=== PATIENT | female | born 1995 | race Caucasian/White ===

== ENCOUNTER 2018-09-29 20:24 | Emergency (ER) | payer SELFPAY ==
[~2018-09-29] VITALS: Ht 160 cm; Wt 145.1 kg
[2018-09-29] MEDS ORDERED: LORazepam INJ 2 MG/ML (ATIVAN) VIAL IVP ONE (20:45)
[2018-09-29 20:47] LABS: BASOPHILS # (AUTO) 0.1 10^3/uL (0.0-0.1); BASOPHILS % (AUTO) 1 % (0-10); EOSINOPHILS # (AUTO) 0.3 10^3/uL (0.0-0.3); EOSINOPHILS % (AUTO) 2 % (0-10); HEMATOCRIT 36 % (35-52); HEMOGLOBIN 11.5 G/DL (11.5-16.0); LYMPHOCYTES # (AUTO) 3.4 X 10^3 (1.0-4.0); LYMPHOCYTES % (AUTO) 25 % (12-44); MEAN CORPUSCULAR HEMOGLOBIN 23 PG (25-34); MEAN CORPUSCULAR HGB CONC 32 G/DL (32-36); MEAN CORPUSCULAR VOLUME 74 FL (80-99); MEAN PLATELET VOLUME 9.1 FL (7.4-10.4); MONOCYTES % (AUTO) 7 % (0-12); NEUTROPHILS # (AUTO) 8.9 X 10^3 (1.8-7.8); NEUTROPHILS % (AUTO) 66 % (42-75); PLATELET COUNT 600 10^3/uL (130-400); RED CELL DISTRIBUTION WIDTH 17.2 % (10.0-14.5); WHITE BLOOD COUNT 13.6 10^3/uL (4.3-11.0)
[2018-09-29 20:59] LABS: PROTHROMBIN TIME PATIENT 13.4 SEC (12.2-14.7)
[2018-09-29 21:06] LABS: ALANINE AMINOTRANSFERASE 29 U/L (0-55); ALBUMIN 4.1 GM/DL (3.2-4.5); ALKALINE PHOSPHATASE 72 U/L (40-136); BILIRUBIN,TOTAL 0.4 MG/DL (0.1-1.0); BUN/CREATININE RATIO 9; CALCIUM 9.7 MG/DL (8.5-10.1); CARBON DIOXIDE 23 MMOL/L (21-32); CHLORIDE 104 MMOL/L (98-107); CREATININE SERUM 0.95 MG/DL (0.60-1.30); GFR ESTIMATED > 60; GLUCOSE 112 MG/DL (70-105); MAGNESIUM 1.9 MG/DL (1.8-2.4); POTASSIUM 3.6 MMOL/L (3.6-5.0); SODIUM 139 MMOL/L (135-145); TOTAL PROTEIN 7.4 GM/DL (6.4-8.2)
--- NOTE | 2018-09-29 21:10 | ED Chest Pain ---
General Chief Complaint: Chest Pain Stated Complaint: CP Nursing Triage Note: PT AMB TO RM 3 WITH COMPLAINT OF CHEST PAIN. 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 STATES SHE THOUGHT SHE WAS HAVING AN ANXIETY ATTACK, BUT WAS NOT RELIEVED BY HER HYDROXYZINE OR A SHOWER. PT STATES SHE HAD OPEN HEART A CHILD TO REPAIR HOLES IN HEART. Nursing Sepsis Screen: No Definite Risk Source: patient, family Exam Limitations: no limitations (ANMOL WEINER MD) History of Present Illness Date Seen by Provider: September 29, 2018 Time Seen by Provider: 20:30 Initial Comments This 23-year-old young lady presents to the emergency room with primary complaints of shortness of breath and chest tightness that started about 20 minutes prior to arrival. She does struggle with anxiety and panic attacks for which she takes hydroxyzine. However, she states this feels somewhat different than the usual panic attacks. She does have numbness and tingling in her fingers. They tightness in her chest seems to be worse with deep breathing. She has nausea for which her mother gave her a "nausea pill". Patient recently moved here from [place] and has not established in the healthcare community. She reports having a cardiac history as a young child. 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 She denies smoking, alcohol use, or drug use. She also has had a faint pain in her left side recently. Patient is noted to be tachycardic on initial assessment. (ANMOL WEINER MD) Allergies and Home Medications Allergies Coded Allergies: amoxicillin (Verified Allergy, Unknown, 09/29/18) Patient Home Medication List Home Medication List Reviewed: Yes (ANMOL WEINER MD) Review of Systems Review of Systems Constitutional: no symptoms reported EENTM: No Symptoms Reported Respiratory: See HPI Cardiovascular: See HPI Gastrointestinal: No Symptoms Reported Genitourinary: No Symptoms Reported Musculoskeletal: no symptoms reported Skin: no symptoms reported Psychiatric/Neurological: See HPI Endocrine: No Symptoms Reported Hematologic/Lymphatic: No Symptoms Reported (ANMOL WEINER MD) Past Vussvee-Lcawue-Coboos Hx Past Med/Social Hx: Reviewed and Corrections made (ANMOL WEINER MD) Patient Social History Alcohol Use: Denies Use Recreational Drug Use: No Smoking Status: Never a Smoker Recent Foreign Travel: No Contact w/Someone Who Travel: No Recent Infectious Disease Expo: No Recent Hopitalizations: No (ANMOL WEINER MD) Immunizations Up To Date Tetanus Booster (TDap): Unknown PED Vaccines UTD: Yes (ANMOL WEINER MD) Seasonal Allergies Seasonal Allergies: No (ANMOL WEINER MD) Past Medical History Surgeries: Yes (OPEN HEART) Respiratory: No Cardiac: Yes (OPEN HEART CHILD TO REPAIR HOLES IN HEART ) Neurological: No Last Menstrual Period: Aug 09, 2018 Reproductive Disorders: No Gastrointestinal: Yes Gastroesophageal Reflux Musculoskeletal: No Endocrine: No HEENT: No Cancer: No Psychosocial: Yes Anxiety Integumentary: No (ANMOL WEINER MD) Physical Exam Vital Signs Vital Signs - First Documented 09/29/18 20:28 Pulse 112 Resp 15 B/P (MAP) 153/102 (119) Pulse Ox 98 O2 Delivery Room Air (MILAGRO MAYS MD) Vital Signs Capillary Refill : Less Than 3 Seconds (ANMOL WEINER MD) Height, Weight, BMI Height: 5'3.00" Weight: 320lbs. oz. 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 She was) Skin: Normal Color, Warm/Dry (ANMOL WEINER MD) Progress/Results/Core Measures Results/Orders Lab Results Laboratory Tests Test 09/29/18 20:35 Range/Units White Blood Count 13.6 H 4.3-11.0 10^3/uL Red Blood Count 4.92 4.35-5.85 10^6/uL Hemoglobin 11.5 11.5-16.0 G/DL Hematocrit 36 35-52 % Mean Corpuscular Volume 74 L 80-99 FL Mean Corpuscular Hemoglobin 23 L 25-34 PG Mean Corpuscular Hemoglobin Concent 32 32-36 G/DL Red Cell Distribution Width 17.2 H 10.0-14.5 % Platelet Count 600 H 130-400 10^3/uL Mean Platelet Volume 9.1 7.4-10.4 FL Neutrophils (%) (Auto) 66 42-75 % Lymphocytes (%) (Auto) 25 12-44 % Monocytes (%) (Auto) 7 0-12 % Eosinophils (%) (Auto) 2 0-10 % Basophils (%) (Auto) 1 0-10 % Neutrophils # (Auto) 8.9 H 1.8-7.8 X 10^3 Lymphocytes # (Auto) 3.4 1.0-4.0 X 10^3 Monocytes # (Auto) 1.0 0.0-1.0 X 10^3 Eosinophils # (Auto) 0.3 0.0-0.3 10^3/uL Basophils # (Auto) 0.1 0.0-0.1 10^3/uL Prothrombin Time 13.4 12.2-14.7 SEC INR Comment 1.0 0.8-1.4 Activated Partial Thromboplast Time 31 24-35 SEC D-Dimer 0.42 0.00-0.49 UG/ML Sodium Level 139 135-145 MMOL/L Potassium Level 3.6 3.6-5.0 MMOL/L Chloride Level 104 98-107 MMOL/L Carbon Dioxide Level 23 21-32 MMOL/L Anion Gap 12 5-14 MMOL/L Blood Urea Nitrogen 9 7-18 MG/DL Creatinine 0.95 0.60-1.30 MG/DL Estimat Glomerular Filtration Rate > 60 BUN/Creatinine Ratio 9 Glucose Level 112 H 70-105 MG/DL Calcium Level 9.7 8.5-10.1 MG/DL Corrected Calcium 9.6 8.5-10.1 MG/DL Magnesium Level 1.9 1.8-2.4 MG/DL Total Bilirubin 0.4 0.1-1.0 MG/DL Aspartate Amino Transf (AST/SGOT) 29 5-34 U/L Alanine Aminotransferase (ALT/SGPT) 29 0-55 U/L Alkaline Phosphatase 72 40-136 U/L Myoglobin 25.2 10.0-92.0 NG/ML Troponin I < 0.028 <0.028 NG/ML Total Protein 7.4 6.4-8.2 GM/DL Albumin 4.1 3.2-4.5 GM/DL Serum Test, Qualitative NEGATIVE NEGATIVE (MILAGRO MAYS MD) Medications Given in ED Current Medications Medications Dose Ordered Sig/Emmanuel Route Start Time Stop Time Status Last Admin Dose Admin Lorazepam 1 mg ONCE ONCE IVP 09/29/18 20:45 09/29/18 20:46 DC 09/29/18 20:56 1 MG (MILAGRO MAYS MD) Vital Signs/I&O 09/29/18 20:28 Pulse 112 Resp 15 B/P (MAP) 153/102 (119) Pulse Ox 98 O2 Delivery Room Air (MILAGRO MAYS MD) Blood Pressure Mean: 119 Progress Progress Note : Time: 21:14 Progress Note Patient was seen and examined. Chest pain workup is in progress. Ativan 1 mg was given for anxiety. (ANMOL WEINER MD) Progress Note : Progress Note 2149: I assumed care of the patient from Dr. Katz pending labs and chest x-ray. Those are now complete. Chest x-ray shows what pad but no other acute finding. D-dimer is negative. In reevaluating the patient she is having no respiratory distress. Pain is resolved. She believes that it may be related to anxiety. She does have cardiac history and does need follow-up with cardiology and we will give her follow-up information for Dr. Lopez. They'll call his office on Tuesday morning for appointment next week. Discharged home with return precautions. Patient verbalize understanding instructions and agreement with plan. (MILAGRO MAYS MD) Initial ECG Impression Date: September 29, 2018 Initial ECG Impression Time: 20:32 Initial ECG Rate: 115 Initial ECG Rhythm: S.Tach Initial ECG Intervals Right bundle branch block Comment Sinus tachycardia with no ST elevation or depression. Right bundle branch block. No axis deviation. (ANMOL WEINER MD) Diagnostic Imaging Diagonstic Imaging: Xray Plain Films/CT/US/NM/MRI: chest Comments Chest x-ray viewed by me. Report reviewed. Report below: NAME: VIVIAN CASTILLO [facility] REC#: [id number] PT STATUS: REG ER : 1995 PHYSICIAN: ANMOL WEINER MD ADMIT DATE: 09/29/18/ER Signed Date of Exam: 09/29/18 CHEST PA/LAT (2 VIEW) INDICATION: Chest pain. PA and lateral views were obtained FINDINGS: The heart size is normal. There is prominent pericardial fat on the right. There is no pleural effusion, pneumothorax or pneumonia. Mediastinum is unremarkable. IMPRESSION: No acute cardiopulmonary abnormality Dictated by: Dictated on workstation # [id number] Dict: 09/29/182130 Trans: 09/29/182133 Interpreted by: LATOYA TRIANA MD Electronically signed by: LATOYA TRIANA MD 09/29/182133 (ANMOL WEINER MD) Departure Impression Primary Impression: Chest pain Qualified Codes: R07.9 - Chest pain, unspecified Additional Impression: Anxiety Disposition: 01 HOME, SELF-CARE Condition: Improved Departure-Patient Inst. Decision time for Depature: 21:56 (MILAGRO MAYS MD) Referrals: MARSHALL LOPEZ MD UNKNOWN (PCP) Primary Care Physician Patient Instructions: Chest Pain (DC), Anxiety, Adult (DC) Add. Discharge Instructions: All discharge instructions reviewed with patient and/or family. Voiced understanding. Call Dr. Lopez's office on Tuesday morning for appointment this week for recheck and further evaluation. Return for worse pain, fever, vomiting, weakness, rhythm problems or other concerns as needed. Continue home medications as previously prescribed. You may take Tylenol/acetaminophen 1000 mg every 8 hours as needed for pain. You may take ibuprofen 600 mg every 8 hours as needed for pain as well. Drink plenty of fluids. Copy Copies To 1: MARSHALL LOPEZ MD, JOSHUA T MD September 29, 2018 21:10 MILAGRO MAYS MD September 29, 2018 21:58
--- NOTE | 2018-09-29 21:33 | Diagnostic Imaging Report ---
INDICATION: Chest pain. PA and lateral views were obtained FINDINGS: The heart size is normal. There is prominent pericardial fat on the right. There is no pleural effusion, pneumothorax or pneumonia. Mediastinum is unremarkable. IMPRESSION: No acute cardiopulmonary abnormality Dictated by: Dictated on workstation # [id number]
[2018-09-29 22:05] VITALS: BP 136/94
== END 2018-09-29 22:05 | disposition home or self-care (01) ==
LOC: ER 20:27
DX: R07.89 Other chest pain (principal); F41.9 Anxiety disorder, unspecified; K21.9 Gastro-esophageal reflux disease without esophagitis; Z86.79 Personal history of other diseases of the circulatory system; Z88.0 Allergy status to penicillin; Z98.890 Other specified postprocedural states
CPT/HCPCS: 36415; 71046; 80053; 83735; 83874; 84484; 84703; 85025; 85379; 85610; 85730; 93005; 93041

== ENCOUNTER 2018-10-10 22:37 | Emergency (ER) | payer MEDICAID, OTHER ==
[~2018-10-10] VITALS: Ht 160 cm; Wt 145.1 kg
[2018-10-10 23:59] LABS: BILIRUBIN,URINE NEGATIVE (NEGATIVE); CLARITY,URINE CLEAR; COLOR,URINE YELLOW; GLUCOSE, URINE (UA) NEGATIVE (NEGATIVE); KETONES,URINE NEGATIVE (NEGATIVE); LEUKOCYTE ESTERASE ,URINE NEGATIVE (NEGATIVE); NITRITE,URINE NEGATIVE (NEGATIVE); PH,URINE 6 (5-9); PROTEIN,URINE NEGATIVE (NEGATIVE); UROBILINOGEN,URINE NORMAL (NORMAL)
[2018-10-11] MEDS ORDERED: PANTOPRAZOLE 40 MG (PROTONIX) VIAL IV ONE
[2018-10-11 00:10] LABS: HCG,QUALITATIVE URINE NEGATIVE (NEGATIVE)
[2018-10-11 00:14] LABS: BACTERIA,URINE TRACE /HPF; SQUAMOUS EPITHELIAL CELL,UR 25-50 /HPF
[2018-10-11 00:21] LABS: AMPHETAMINE SCREEN, URINE NEGATIVE (NEGATIVE); BARBITURATE SCREEN URINE NEGATIVE (NEGATIVE); BENZODIAZEPINES SCREEN URINE NEGATIVE (NEGATIVE); CANNABINOID SCREEN, URINE NEGATIVE (NEGATIVE); COCAINE SCREEN URINE NEGATIVE (NEGATIVE); METHADONE STAT NEGATIVE (NEGATIVE); METHAMPHETAMINE SCREEN URINE S NEGATIVE (NEGATIVE); OPIATE SCREEN URINE NEGATIVE (NEGATIVE); OXYCODONE STAT NEGATIVE (NEGATIVE); PROPOXYPHENE STAT NEGATIVE (NEGATIVE); TRICYCLIC ANTIDEPRESSANTS SCRE NEGATIVE (NEGATIVE)
[2018-10-11 00:29] LABS: BASOPHILS # (AUTO) 0.1 10^3/uL (0.0-0.1); BASOPHILS % (AUTO) 0 % (0-10); EOSINOPHILS # (AUTO) 0.1 10^3/uL (0.0-0.3); EOSINOPHILS % (AUTO) 1 % (0-10); HEMATOCRIT 37 % (35-52); HEMOGLOBIN 11.8 G/DL (11.5-16.0); LYMPHOCYTES # (AUTO) 1.9 X 10^3 (1.0-4.0); LYMPHOCYTES % (AUTO) 14 % (12-44); MEAN CORPUSCULAR HEMOGLOBIN 24 PG (25-34); MEAN CORPUSCULAR HGB CONC 32 G/DL (32-36); MEAN CORPUSCULAR VOLUME 74 FL (80-99); MEAN PLATELET VOLUME 9.7 FL (7.4-10.4); MONOCYTES # (AUTO) 0.9 X 10^3 (0.0-1.0); MONOCYTES % (AUTO) 6 % (0-12); NEUTROPHILS # (AUTO) 10.9 X 10^3 (1.8-7.8); NEUTROPHILS % (AUTO) 79 % (42-75); PLATELET COUNT 522 10^3/uL (130-400); RED CELL DISTRIBUTION WIDTH 16.4 % (10.0-14.5); WHITE BLOOD COUNT 13.8 10^3/uL (4.3-11.0)
[2018-10-11 00:40] LABS: PROTHROMBIN TIME PATIENT 13.5 SEC (12.2-14.7)
[2018-10-11 00:48] LABS: ALANINE AMINOTRANSFERASE 26 U/L (0-55); ALBUMIN 4.2 GM/DL (3.2-4.5); ALKALINE PHOSPHATASE 69 U/L (40-136); AMYLASE 39 U/L (25-125); BILIRUBIN,TOTAL 0.3 MG/DL (0.1-1.0); BUN/CREATININE RATIO 11; CALCIUM 9.9 MG/DL (8.5-10.1); CARBON DIOXIDE 25 MMOL/L (21-32); CHLORIDE 103 MMOL/L (98-107); CREATININE SERUM 0.85 MG/DL (0.60-1.30); GFR ESTIMATED > 60; GLUCOSE 112 MG/DL (70-105); LIPASE 7 U/L (8-78); MAGNESIUM 1.9 MG/DL (1.8-2.4); POTASSIUM 4.2 MMOL/L (3.6-5.0); SODIUM 139 MMOL/L (135-145); TOTAL PROTEIN 7.3 GM/DL (6.4-8.2)
[2018-10-11] MEDS ORDERED: KETOROLAC 30 MG/ML VIAL IVP ONE (01:45)
[2018-10-11] MEDS ORDERED: ONDA4TAB11 PO (01:55)
--- NOTE | 2018-10-11 01:56 | ED General ---
General Chief Complaint: Psych/Social Disorder Stated Complaint: ANXIETY Nursing Triage Note: AMBULATORY TO ED WITH C/O ANXIETY, CHEST TIGHTNESS. Nursing Sepsis Screen: No Definite Risk Source of Information: Patient History of Present Illness Date Seen by Provider: Oct 10, 2018 Time Seen by Provider: 23:35 Initial Comments PT ARRIVES VIA POV WITH BOYFRIEND PT STATE SHE HAS HAD CHEST TIGHTNESS ALL DAY STATES IT FEELS LIKE SHE IS HAVING A PANIC ATTACK, AND SHE STATES "I GET THOSE ALL THE TIME" HAS BEEN PRESCRIBED HYDRALAZINE, AND TOOK 1 AT 2100 TONIGHT AND HAS NOT HELPED. PT HAS BEEN DX WITH GERD AND HAS BEEN PRESCRIBED OMEPRAZOLE. STATES SHE HAS HAD SOME NAUSEA AND VOMITING--HAS BEEN "SPITTING UP DARK MUCOUS"--THIS HAS BEEN ONGOING THING AND HAS BEEN DX WITH GERD , AND HAS HAD EGD. NO ABDOMINAL PAIN NO DIARRHEA PT HAS OCCASIONAL NON-PRODUCTIVE COUGH--MOSTLY WHEN SHE LAYS DOWN NO PAIN WITH BREATHING NO SHORTNESS OF BREATH AND NO WHEEZING NO FEVER PT JUST MOVED HERE A MONTH AGO FROM [place], [place] PT HAS NEW PT APPOINTMENT WITH [facility] 10/17/18 PT LATER STATES SHE WAS SEEN HERE LAST WEEK FOR THE SAME THING WAS HERE 09/29/18 WITH SAME COMPLAINTS WORK UP WAS ESSENTIALLY NEGATIVE, PT WAS TO FOLLOW UP WITH DR. 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 LMP 07/2018--HAS NOT DONE HOME TEST. STATES SHE WAS ON DEPO PROVERA, AND HER LAST SHOT WAS 02/2018 AND PERIODS HAVE NOT BEEN REGULAR SINCE SHE QUIT TAKING DEPO PROVERA. NO OTHER FORM OF CONTROL SINCE THEN. Allergies and Home Medications Allergies Coded Allergies: amoxicillin (Verified Allergy, Unknown, 09/29/18) Home Medications Ondansetron 4 Mg Tab.rapdis, 4 MG PO Q4H Prescribed by: LUANA ANDRADE on 10/11/18 [id number] Patient Home Medication List Home Medication List Reviewed: Yes Review of Systems Review of Systems Constitutional: no symptoms reported; No chills, No diaphoresis, No dizziness, No fever, No malaise, No weakness EENTM: no symptoms reported Respiratory: cough; No orthopnea, No phlegm, No short of breath, No wheezing Cardiovascular: see HPI, chest pain; No edema; Hx of Intervention; No palpitations, No syncope Gastrointestinal: see HPI; No abdominal pain, No diarrhea; nausea, vomiting Genitourinary: see HPI LMP: Jul 07, 2018 Musculoskeletal: no symptoms reported; No back pain Skin: no symptoms reported Psychiatric/Neurological: No Symptoms Reported Hematologic/Lymphatic: No Symptoms Reported Immunological/Allergic: no symptoms reported Past Xkdvjnu-Uptccw-Jteqbq Hx Patient Social History Alcohol Use: Denies Use Recreational Drug Use: No Smoking Status: Never a Smoker Recent Foreign Travel: No Contact w/Someone Who Travel: No Recent Infectious Disease Expo: No Recent Hopitalizations: No Immunizations Up To Date Tetanus Booster (TDap): Unknown PED Vaccines UTD: Yes Seasonal Allergies Seasonal Allergies: No Past Medical History 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4; EGD) Cardiac, Open Heart Surgery Respiratory: No Cardiac: Yes (OPEN HEART SURGERY AT AGE 4 TO REPAIR HOLES IN HEART ; RBBB) Congenital Heart Disease Neurological: Yes Headaches /Migraines Female Reproductive Disorders: Menstrual Problems Genitourinary: No Gastrointestinal: Yes Gastroesophageal Reflux Musculoskeletal: No Endocrine: Yes ( MORBID OBESITY) HEENT: No Cancer: No Psychosocial: Yes (PANIC ATTACKS) Anxiety Integumentary: No Blood Disorders: No Physical Exam Vital Signs Vital Signs - First Documented 10/10/18 10/11/18 23:28 02:10 Temp 98.2 Pulse 96 Resp 16 B/P (MAP) 139/93 (108) Pulse Ox 98 O2 Delivery Room Air Capillary Refill : Less Than 3 Seconds Height, Weight, BMI Height: 5'3.00" Weight: 320lbs. oz. 145.392892zo; BMI Method:Stated General Appearance: No Apparent Distress, Obese (MORBIDLY OBESE. ), Other (SMILING, VERY TALKATIVE, DOES NOT APPEAR TO BE IN ANY DISCOMFORT OR DISTRESS. ) HEENT: PERRL/EOMI Neck: Normal Inspection, Non Tender, Supple Respiratory: Normal Breath Sounds, No Accessory Muscle Use, No Respiratory Distress, Other (MARKED STERNAL AND PARASTERNAL CHEST WALL TENDERNESS--PALPATION DRAMATICALLY REPRODUCES PAIN. 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 Norm as Tested Skin: Normal Color, Warm/Dry; No Rash Progress/Results/Core Measures Suspected Sepsis Recent Fever Within 48 Hours: No Infection Criteria Present: None New/Unexplained Altered Menta: No Sepsis Screen: No Definite Risk SIRS Temperature:98.2 Pulse: 96 Respiratory Rate: 16 Laboratory Tests 10/11/18 00:15: White Blood Count 13.8H Blood Pressure 139 /93 Mean: 108 Laboratory Tests 10/11/18 00:15: Creatinine 0.85, INR Comment 1.0, Platelet Count 522H, Total Bilirubin 0.3 Results/Orders Lab Results Laboratory Tests Test 10/10/18 23:50 10/11/18 00:15 Range/Units Urine Color YELLOW Urine Clarity CLEAR Urine pH 6 5-9 Urine Specific [place] 1.015 L 1.016-1.022 Urine Protein NEGATIVE NEGATIVE Urine Glucose (UA) NEGATIVE NEGATIVE Urine Ketones NEGATIVE NEGATIVE Urine Nitrite NEGATIVE NEGATIVE Urine Bilirubin NEGATIVE NEGATIVE Urine Urobilinogen NORMAL NORMAL MG/DL Urine Leukocyte Esterase NEGATIVE NEGATIVE Urine RBC (Auto) NEGATIVE NEGATIVE Urine RBC NONE /HPF Urine WBC NONE /HPF Urine Squamous Epithelial Cells 25-50 H /HPF Urine Crystals NONE /LPF Urine Bacteria TRACE /HPF Urine Casts NONE /LPF Urine Mucus SMALL H /LPF Urine Culture Indicated NO Urine Test NEGATIVE NEGATIVE Urine Opiates Screen NEGATIVE NEGATIVE Urine Oxycodone Screen NEGATIVE NEGATIVE Urine Methadone Screen NEGATIVE NEGATIVE Urine Propoxyphene Screen NEGATIVE NEGATIVE Urine Barbiturates Screen NEGATIVE NEGATIVE Ur Tricyclic Antidepressants Screen NEGATIVE NEGATIVE Urine Phencyclidine Screen NEGATIVE NEGATIVE Urine Amphetamines Screen NEGATIVE NEGATIVE Urine Methamphetamines Screen NEGATIVE NEGATIVE Urine Benzodiazepines Screen NEGATIVE NEGATIVE Urine Cocaine Screen NEGATIVE NEGATIVE Urine Cannabinoids Screen NEGATIVE NEGATIVE White Blood Count 13.8 H 4.3-11.0 10^3/uL Red Blood Count 4.96 4.35-5.85 10^6/uL Hemoglobin 11.8 11.5-16.0 G/DL Hematocrit 37 35-52 % Mean Corpuscular Volume 74 L 80-99 FL Mean Corpuscular Hemoglobin 24 L 25-34 PG Mean Corpuscular Hemoglobin Concent 32 32-36 G/DL Red Cell Distribution Width 16.4 H 10.0-14.5 % Platelet Count 522 H 130-400 10^3/uL Mean Platelet Volume 9.7 7.4-10.4 FL Neutrophils (%) (Auto) 79 H 42-75 % Lymphocytes (%) (Auto) 14 12-44 % Monocytes (%) (Auto) 6 0-12 % Eosinophils (%) (Auto) 1 0-10 % Basophils (%) (Auto) 0 0-10 % Neutrophils # (Auto) 10.9 H 1.8-7.8 X 10^3 Lymphocytes # (Auto) 1.9 1.0-4.0 X 10^3 Monocytes # (Auto) 0.9 0.0-1.0 X 10^3 Eosinophils # (Auto) 0.1 0.0-0.3 10^3/uL Basophils # (Auto) 0.1 0.0-0.1 10^3/uL Prothrombin Time 13.5 12.2-14.7 SEC INR Comment 1.0 0.8-1.4 Activated Partial Thromboplast Time 34 24-35 SEC Sodium Level 139 135-145 MMOL/L Potassium Level 4.2 3.6-5.0 MMOL/L Chloride Level 103 98-107 MMOL/L Carbon Dioxide Level 25 21-32 MMOL/L Anion Gap 11 5-14 MMOL/L Blood Urea Nitrogen 9 7-18 MG/DL Creatinine 0.85 0.60-1.30 MG/DL Estimat Glomerular Filtration Rate > 60 BUN/Creatinine Ratio 11 Glucose Level 112 H 70-105 MG/DL Calcium Level 9.9 8.5-10.1 MG/DL Corrected Calcium 9.7 8.5-10.1 MG/DL Magnesium Level 1.9 1.8-2.4 MG/DL Total Bilirubin 0.3 0.1-1.0 MG/DL Aspartate Amino Transf (AST/SGOT) 20 5-34 U/L Alanine Aminotransferase (ALT/SGPT) 26 0-55 U/L Alkaline Phosphatase 69 40-136 U/L Myoglobin 31.6 10.0-92.0 NG/ML Troponin I < 0.028 <0.028 NG/ML B-Type Natriuretic Peptide 20.1 <100.0 PG/ML Total Protein 7.3 6.4-8.2 GM/DL Albumin 4.2 3.2-4.5 GM/DL Amylase Level 39 25-125 U/L Lipase 7 L 8-78 U/L My Orders Orders - LUANA ANDRADE DO Drug Screen Stat (Urine) (10/10/18 23:30) Hcg,Qualitative Urine (10/10/18 23:30) Ua Culture If Indicated (10/10/18 23:30) Cbc With Automated Diff (10/10/18 23:55) Magnesium (10/10/18 23:55) Ekg Tracing (10/10/18 23:55) Cardiac Profile 1 (10/10/18 23:55) Comprehensive Metabolic Panel (10/10/18 23:55) Myoglobin Serum (10/10/18 23:55) Protime With Inr (10/10/18 23:55) Partial Thromboplastin Time (10/10/18 23:55) O2 (10/10/18 23:55) Monitor-Rhythm Ecg Trace Only (10/10/18 23:55) Ed Iv/Invasive Line Start (10/10/18 23:55) Lipase (10/10/18 23:55) Amylase (10/10/18 23:55) BNP (10/10/18 23:55) Pantoprazole Injection (Protonix Injecti (10/11/18 00:00) Chest 1 View, Ap/Pa Only (10/11/18 00:01) Ketorolac Injection (Toradol Injection) (10/11/18 01:45) Medications Given in ED Current Medications Medications Dose Ordered Sig/Emmanuel Route Start Time Stop Time Status Last Admin Dose Admin Ketorolac Tromethamine 30 mg ONCE ONCE IVP 10/11/18 01:45 10/11/18 01:46 DC 10/11/18 01:57 30 MG Pantoprazole 40 mg ONCE ONCE IV 10/11/18 00:00 10/11/18 00:01 DC 10/11/18 00:37 40 MG Vital Signs/I&O 10/10/18 10/11/18 23:28 02:10 Temp 98.2 98.2 Pulse 96 87 Resp 16 16 B/P (MAP) 139/93 (108) 130/87 (101) Pulse Ox 98 O2 Delivery Room Air Capillary Refill : Less Than 3 Seconds Blood Pressure Mean: 108 Progress Note : Progress Note CHEST DISCOMFORT EASED WITH TORADOL PT HAD NO OTHER SYMPTOMS OF ANY KIND DURING ER STAY ECG Initial ECG Impression Date: Oct 10, 2018 Initial ECG Impression Time: 23:45 Initial ECG Rate: 89 Initial ECG Rhythm: Normal Sinus (BBB) Initial ECG Comparisson: Unchanged Diagnostic Imaging Comments CXR--NO ACUTE PROCESS, UNCHANGED FROM 09/29/18--PERICARDIAL FAT PAD PRESENT, PER RADIOLOGIST REPORT. Reviewed: Reviewed by Me Departure Communication (PCP) [id number]--RADIOLOGIST CALLED ER--HE HAS REPORTED CXR RLL PNEUMONIA ( WAS READ PERICARDIAL FAT PAD ON 09/29/18 ) [id number]--ATTEMPTED TO CONTACT PT--NO ANSWER AT THE NUMBER ON FILE [id number]--SPOKE WITH DR. HUMMEL, AND INFORMED HER OF PT AND THE REPORT ON CXR. SHE WILL ARRANGE FOR OUTPATIENT CT AND HAVE PT FOLLOW UP IN CLINIC THIS WEEK. PT HAS NOT HAD FEVER, ONLY SLIGHT COUGH ASSOCIATED WITH LAYING DOWN, NO SHORTNESS OF BREATH OR PAIN WITH BREATHING, AND HER CHEST PAIN WAS DRAMATICALLY REPRODUCIBLE. Impression Primary Impression: Anterior chest wall pain Additional Impression: Anxiety Disposition: 01 HOME, SELF-CARE Condition: Improved Departure-Patient Inst. Referrals: PRASHANTH CAICEDO,LOCAL PHYSICIAN (PCP) Primary Care Physician Patient Instructions: Chest Pain That Is Not Caused by the Heart (DC), Costochondritis (DC), Anxiety, Adult (DC) Add. Discharge Instructions: CONTINUE OMEPRAZOLE DAILY CONTINUE YOUR ANXIETY MEDICATION PRESCRIBED TYLENOL NEEDED FOR PAIN FOLLOW UP WITH [facility] NEXT WEEK SCHEDULED All discharge instructions reviewed with patient and/or family. Voiced understanding. Scripts Ondansetron (Ondansetron Odt) 4 Mg Tab.rapdis 4 MG PO Q4H for Nausea/Vomiting, #10 TAB Prov: LUANA ANDRADE DO 10/11/18 LUANA ANDRADE DO Oct 11, 2018 01:56
[2018-10-11 02:10] VITALS: BP 130/87
--- OUTSIDE RECORDS SUMMARY | 2018-10-11 02:15 | XMS REPORT | Continuity of Care Document ---
Author Organization Unknown Address Unknown Allergies Active Description Code Type Severity Reaction Onset Reported/Identified Relationship to Patient Clinical Status Yes amoxicillin [id number] Drug Allergy Unknown N/A 09/29/2018 Medications There is no data. Problems Date Dx Coded Attending Type Code Diagnosis Diagnosed By 10/04/2018 MILAGRO MAYS MD, Ot F41.9 ANXIETY DISORDER, UNSPECIFIED 10/04/2018 MILAGRO MAYS MD, Ot K21.9 GASTRO-ESOPHAGEAL REFLUX DISEASE WITHOUT 10/04/2018 MILAGRO MAYS MD, Ot R07.89 OTHER CHEST PAIN 10/04/2018 MILAGRO MAYS MD, Ot Z86.79 PERSONAL HISTORY OF OTHER DISEASES OF TH 10/04/2018 MILAGRO MAYS MD, Ot Z88.0 ALLERGY STATUS TO PENICILLIN 10/04/2018 MILAGRO MAYS MD, Ot Z98.890 OTHER SPECIFIED POSTPROCEDURAL STATES Procedures There is no data. Results Test Result Range Complete blood count (CBC) with automated white blood cell (WBC) differential - 09/29/18 20:35 Blood leukocytes automated count (number/volume) 13.6 10*3/uL 4.3-11.0 Blood erythrocytes automated count (number/volume) 4.92 10*6/uL 4.35-5.85 Venous blood hemoglobin measurement (mass/volume) 11.5 g/dL 11.5-16.0 Blood hematocrit (volume fraction) 36 % 35-52 Automated erythrocyte mean corpuscular volume 74 [foz_us] 80-99 Automated erythrocyte mean corpuscular hemoglobin (mass per erythrocyte) 23 pg 25-34 Automated erythrocyte mean corpuscular hemoglobin concentration measurement (mass/volume) 32 g/dL 32-36 Automated erythrocyte distribution width ratio 17.2 % 10.0- 14.5 Automated blood platelet count (count/volume) 600 10*3/uL 130-400 Automated blood platelet mean volume measurement 9.1 [foz_us] 7.4-10.4 Automated blood neutrophils/100 leukocytes 66 % 42-75 Automated blood lymphocytes/100 leukocytes 25 % 12-44 Blood monocytes/100 leukocytes 7 % 0-12 Automated blood eosinophils/100 leukocytes 2 % 0-10 Automated blood basophils/100 leukocytes 1 % 0-10 Blood neutrophils automated count (number/volume) 8.9 10*3 1.8-7.8 Blood lymphocytes automated count (number/volume) 3.4 10*3 1.0-4.0 Blood monocytes automated count (number/volume) 1.0 10*3 0.0- 1.0 Automated eosinophil count 0.3 10*3/uL 0.0-0.3 Automated blood basophil count (count/volume) 0.1 10*3/uL 0.0-0.1 PT panel in platelet poor plasma by coagulation assay - 09/29/18 20:35 Prothrombin time (PT) in platelet poor plasma by coagulation assay 13.4 s 12.2-14.7 INR in platelet poor plasma or blood by coagulation assay 1.0 0.8-1.4 Activated partial thromboplastin time (aPTT) in platelet poor plasma bycoagulation assay - 09/29/18 20:35 Activated partial thromboplastin time (aPTT) in platelet poor plasma bycoagulation assay 31 s 24-35 Comprehensive metabolic panel - 09/29/18 20:35 Serum or plasma sodium measurement (moles/volume) 139 mmol/L 135-145 Serum or plasma potassium measurement (moles/volume) 3.6 mmol/L 3.6-5.0 Serum or plasma chloride measurement (moles/volume) 104 mmol/L 98-107 Carbon dioxide 23 mmol/L 21-32 Serum or plasma anion gap determination (moles/volume) 12 mmol/L 5-14 Serum or plasma urea nitrogen measurement (mass/volume) 9 mg/dL 7-18 Serum or plasma creatinine measurement (mass/volume) 0.95 mg/dL 0.60-1.30 Serum or plasma urea nitrogen/creatinine mass ratio 9 NRG Serum or plasma creatinine measurement with calculation of estimated glomerular filtration rate > NRG Serum or plasma glucose measurement (mass/volume) 112 mg/dL 70-105 Serum or plasma calcium measurement (mass/volume) 9.7 mg/dL 8.5-10.1 Serum or plasma total bilirubin measurement (mass/volume) 0.4 mg/dL 0.1-1.0 Serum or plasma alkaline phosphatase measurement (enzymatic activity/volume) 72 U/L 40-136 Serum or plasma aspartate aminotransferase measurement (enzymatic activity/volume) 29 U/L 5-34 Serum or plasma alanine aminotransferase measurement (enzymatic activity/volume) 29 U/L 0-55 Serum or plasma protein measurement (mass/volume) 7.4 g/dL 6.4-8.2 Serum or plasma albumin measurement (mass/volume) 4.1 g/dL 3.2-4.5 CALCIUM CORRECTED 9.6 mg/dL 8.5-10.1 Magnesium - 09/29/18 20:35 Magnesium 1.9 mg/dL 1.8-2.4 Serum or plasma troponin i.cardiac measurement (mass/volume) - 09/29/18 20:35 Serum or plasma troponin i.cardiac measurement (mass/volume) < ng/mL <0.028 Myoglobin, serum - 09/29/18 20:35 Myoglobin, serum 25.2 ng/mL 10.0-92.0 Serum or plasma choriogonadotropin ( test) detection - 09/29/18 20:35 Serum or plasma choriogonadotropin ( test) detection NEGATIVE NEGATIVE Fibrin D-dimer FEU measurement in platelet poor plasma (mass/volume) - 09/29/18 20:35 Fibrin D-dimer FEU measurement in platelet poor plasma (mass/volume) 0.42 ug/mL 0.00-0.49 Urine beta human chorionic gonadotropin (hCG) measurement - 10/10/18 23:50 Urine beta human chorionic gonadotropin (hCG) measurement NEGATIVE NEGATIVE Complete urinalysis with reflex to culture - 10/10/18 23:50 Urine color determination YELLOW NRG Urine clarity determination CLEAR NRG Urine pH measurement by test strip 6 5-9 Specific gravity of urine by test strip 1.015 1.016-1.022 Urine protein assay by test strip, semi-quantitative NEGATIVE NEGATIVE Urine glucose detection by automated test strip NEGATIVE NEGATIVE Erythrocytes detection in urine sediment by light microscopy NEGATIVE NEGATIVE Urine ketones detection by automated test strip NEGATIVE NEGATIVE Urine nitrite detection by test strip NEGATIVE NEGATIVE Urine total bilirubin detection by test strip NEGATIVE NEGATIVE Urine urobilinogen measurement by automated test strip (mass/volume) NORMAL NORMAL Urine leukocyte esterase detection by dipstick NEGATIVE NEGATIVE Automated urine sediment erythrocyte count by microscopy (number/high power field) NONE NRG Automated urine sediment leukocyte count by microscopy (number/high power field) NONE NRG Bacteria detection in urine sediment by light microscopy TRACE NRG Squamous epithelial cells detection in urine sediment by light microscopy 25-50 NRG Crystals detection in urine sediment by light microscopy NONE NRG Casts detection in urine sediment by light microscopy NONE NRG Mucus detection in urine sediment by light microscopy SMALL NRG Complete urinalysis with reflex to culture NO NRG Urine drug screening test - 10/10/18 23:50 Urine phencyclidine detection by screening method NEGATIVE NEGATIVE Urine benzodiazepines detection by screening method NEGATIVE NEGATIVE Urine cocaine detection NEGATIVE NEGATIVE Urine amphetamines detection by screening method NEGATIVE NEGATIVE Urine methamphetamine detection by screening method NEGATIVE NEGATIVE Urine cannabinoids detection by screening method NEGATIVE NEGATIVE Urine opiates detection by screening method NEGATIVE NEGATIVE Urine barbiturates detection NEGATIVE NEGATIVE Screening urine tricyclic antidepressants detection NEGATIVE NEGATIVE Urine methadone detection by screening method NEGATIVE NEGATIVE Urine oxycodone detection NEGATIVE NEGATIVE Urine propoxyphene detection NEGATIVE NEGATIVE Complete blood count (CBC) with automated white blood cell (WBC) differential - 10/11/18 00:15 Blood leukocytes automated count (number/volume) 13.8 10*3/uL 4.3-11.0 Blood erythrocytes automated count (number/volume) 4.96 10*6/uL 4.35-5.85 Venous blood hemoglobin measurement (mass/volume) 11.8 g/dL 11.5-16.0 Blood hematocrit (volume fraction) 37 % 35-52 Automated erythrocyte mean corpuscular volume 74 [foz_us] 80-99 Automated erythrocyte mean corpuscular hemoglobin (mass per erythrocyte) 24 pg 25-34 Automated erythrocyte mean corpuscular hemoglobin concentration measurement (mass/volume) 32 g/dL 32-36 Automated erythrocyte distribution width ratio 16.4 % 10.0- 14.5 Automated blood platelet count (count/volume) 522 10*3/uL 130-400 Automated blood platelet mean volume measurement 9.7 [foz_us] 7.4-10.4 Automated blood neutrophils/100 leukocytes 79 % 42-75 Automated blood lymphocytes/100 leukocytes 14 % 12-44 Blood monocytes/100 leukocytes 6 % 0-12 Automated blood eosinophils/100 leukocytes 1 % 0-10 Automated blood basophils/100 leukocytes 0 % 0-10 Blood neutrophils automated count (number/volume) 10.9 10*3 1.8-7.8 Blood lymphocytes automated count (number/volume) 1.9 10*3 1.0-4.0 Blood monocytes automated count (number/volume) 0.9 10*3 0.0- 1.0 Automated eosinophil count 0.1 10*3/uL 0.0-0.3 Automated blood basophil count (count/volume) 0.1 10*3/uL 0.0-0.1 PT panel in platelet poor plasma by coagulation assay - 10/11/18 00:15 Prothrombin time (PT) in platelet poor plasma by coagulation assay 13.5 s 12.2-14.7 INR in platelet poor plasma or blood by coagulation assay 1.0 0.8-1.4 Activated partial thromboplastin time (aPTT) in platelet poor plasma bycoagulation assay - 10/11/18 00:15 Activated partial thromboplastin time (aPTT) in platelet poor plasma bycoagulation assay 34 s 24-35 Comprehensive metabolic panel - 10/11/18 00:15 Serum or plasma sodium measurement (moles/volume) 139 mmol/L 135-145 Serum or plasma potassium measurement (moles/volume) 4.2 mmol/L 3.6-5.0 Serum or plasma chloride measurement (moles/volume) 103 mmol/L 98-107 Carbon dioxide 25 mmol/L 21-32 Serum or plasma anion gap determination (moles/volume) 11 mmol/L 5-14 Serum or plasma urea nitrogen measurement (mass/volume) 9 mg/dL 7-18 Serum or plasma creatinine measurement (mass/volume) 0.85 mg/dL 0.60-1.30 Serum or plasma urea nitrogen/creatinine mass ratio 11 NRG Serum or plasma creatinine measurement with calculation of estimated glomerular filtration rate > NRG Serum or plasma glucose measurement (mass/volume) 112 mg/dL 70-105 Serum or plasma calcium measurement (mass/volume) 9.9 mg/dL 8.5-10.1 Serum or plasma total bilirubin measurement (mass/volume) 0.3 mg/dL 0.1-1.0 Serum or plasma alkaline phosphatase measurement (enzymatic activity/volume) 69 U/L 40-136 Serum or plasma aspartate aminotransferase measurement (enzymatic activity/volume) 20 U/L 5-34 Serum or plasma alanine aminotransferase measurement (enzymatic activity/volume) 26 U/L 0-55 Serum or plasma protein measurement (mass/volume) 7.3 g/dL 6.4-8.2 Serum or plasma albumin measurement (mass/volume) 4.2 g/dL 3.2-4.5 CALCIUM CORRECTED 9.7 mg/dL 8.5-10.1 Magnesium - 10/11/18 00:15 Magnesium 1.9 mg/dL 1.8-2.4 Serum or plasma troponin i.cardiac measurement (mass/volume) - 10/11/18 00:15 Serum or plasma troponin i.cardiac measurement (mass/volume) < ng/mL <0.028 Myoglobin, serum - 10/11/18 00:15 Myoglobin, serum 31.6 ng/mL 10.0-92.0 Serum or plasma amylase measurement (enzymatic activity/volume) - 10/11/18 00:15 Serum or plasma amylase measurement (enzymatic activity/volume) 39 U/L 25-125 Lipase - 10/11/18 00:15 Lipase 7 U/L 8-78 Serum or plasma lithium measurement (moles/volume) - 10/11/18 00:15 BNP level 20.1 pg/mL <100.0 Encounters ACCT No. Visit Date/Time Discharge Status Pt. Type Provider Facility Loc./Unit Complaint [id number] 09/29/2018 20:27:00 09/29/2018 22:05:00 DIS Outpatient TABATHA LI, MILAGRO Fischer [facility] [id number] 10/11/2018 00:10:00 Document Registration
--- NOTE | 2018-10-11 07:36 | Diagnostic Imaging Report ---
EXAM: CHEST 1 VIEW, AP/PA ONLY INDICATION: Chest pressure. COMPARISON: 09/29/2018. FINDINGS: Normal heart size and central pulmonary vascularity. Persistent consolidation in the right middle lobe. No pleural effusion or pneumothorax. Sternotomy. IMPRESSION: Consolidation in the right middle lobe is similar to the prior exam and may represent a pneumonitis. Report was faxed/called to Dr. [facility] by nicolette at 7:35 am. SOBIA Weiner, was also notified. Dictated by: Dictated on workstation # [id number]
== END 2018-10-11 02:13 | disposition home or self-care (01) ==
LOC: EDUNIT# 22:37 → ER 22:38
DX: R07.89 Other chest pain (principal); F41.9 Anxiety disorder, unspecified; K21.9 Gastro-esophageal reflux disease without esophagitis; G43.909 Migraine, unspecified, not intractable, without status migrainosus; E66.01 Morbid (severe) obesity due to excess calories; Z87.74 Personal history of (corrected) congenital malformations of heart and circulatory system; Z88.0 Allergy status to penicillin; Z98.890 Other specified postprocedural states
CPT/HCPCS: 36415; 71045; 80053; 80306; 81000; 82150; 83690; 83735; 83874; 83880; 84484; 84703; 85025; 85610; 85730; 93005; 93041; 96374; 96375

== ENCOUNTER 2018-11-30 18:09 | Emergency (ER) | payer MEDICAID ==
[~2018-11-30] VITALS: Ht 160 cm; Wt 134.7 kg
[~2018-11-30 18:09] MED LIST: ONDA4TAB11 PO
[2018-11-30] MEDS ORDERED: ALPRAZolam 0.25 MG (XANAX) TAB PO ONE (18:15)
--- NOTE | 2018-11-30 18:28 | ED General ---
General Chief Complaint: General Problems/Pain Stated Complaint: HEART RACING Source of Information: Patient Exam Limitations: No Limitations History of Present Illness Date Seen by Provider: Nov 30, 2018 Time Seen by Provider: 18:26 Initial Comments To ER with reports of heart racing. This began this morning. She's had some shortness of breath and a cough as well. She has a history of congenital heart disease which has been repaired surgically. The high heart rate arms her. On ER arrival she is found to have a heart rate of 110 sinus without ectopy, temperature of 101. She is also reporting some low back pain over the past few days. Timing/Duration: 12-24 Hours Severity: Moderate Associated Systoms: Cough Allergies and Home Medications Allergies Coded Allergies: amoxicillin (Verified Allergy, Unknown, 09/29/18) Home Medications Ondansetron 4 Mg Tab.rapdis, 4 MG PO Q4H Prescribed by: LUANA ANDRADE on 10/11/18 0155 Patient Home Medication List Home Medication List Reviewed: Yes Review of Systems Review of Systems Constitutional: see HPI, chills, fever EENTM: see HPI Respiratory: see HPI, cough Cardiovascular: no symptoms reported Genitourinary: no symptoms reported Musculoskeletal: no symptoms reported Skin: no symptoms reported Psychiatric/Neurological: No Symptoms Reported Hematologic/Lymphatic: No Symptoms Reported Immunological/Allergic: no symptoms reported Past Gsjnsej-Kxcjjt-Tfqdrh Hx Patient Social History Alcohol Use: Denies Use Recreational Drug Use: No Smoking Status: Never a Smoker Recent Foreign Travel: No Contact w/Someone Who Travel: No Recent Hopitalizations: No Immunizations Up To Date Tetanus Booster (TDap): Unknown PED Vaccines UTD: Yes Seasonal Allergies Seasonal Allergies: No Past Medical History 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4; EGD) Cardiac, Open Heart Surgery Respiratory: No Cardiac: Yes (OPEN HEART SURGERY AT AGE 4 TO REPAIR HOLES IN HEART ; RBBB) Congenital Heart Disease Neurological: Yes Headaches /Migraines Female Reproductive Disorders: Menstrual Problems Genitourinary: No Gastrointestinal: Yes Gastroesophageal Reflux Musculoskeletal: No Endocrine: Yes ( MORBID OBESITY) HEENT: No Cancer: No Psychosocial: Yes (PANIC ATTACKS) Anxiety Integumentary: No Blood Disorders: No Physical Exam Vital Signs Vital Signs - First Documented 11/30/18 18:15 Temp 101.0 Pulse 112 Resp 18 B/P (MAP) 136/118 (124) Pulse Ox 97 O2 Delivery Room Air Capillary Refill : Height, Weight, BMI Height: 5'3.00" Weight: 320lbs. oz. 145.921751xt; BMI Method:Stated General Appearance: No Apparent Distress, WD/WN Eyes: Bilateral Eye Normal Inspection, Bilateral Eye PERRL, Bilateral Eye EOMI HEENT: PERRL/EOMI, TMs Normal Neck: Full Range of Motion, Normal Inspection Respiratory: No Accessory Muscle Use, No Respiratory Distress Gastrointestinal: Normal Bowel Sounds, Non Tender, Soft Extremity: Normal Capillary Refill, Normal Inspection Neurologic/Psychiatric: Alert, Oriented x3 Skin: Normal Color, Warm/Dry Progress/Results/Core Measures Suspected Sepsis SIRS Temperature: Pulse: Respiratory Rate: Laboratory Tests 11/30/18 18:20: White Blood Count 12.5H Blood Pressure / Mean: Laboratory Tests 11/30/18 18:20: Creatinine 0.95, Platelet Count 533H, Total Bilirubin 0.6 Results/Orders Lab Results Laboratory Tests Test 11/30/18 18:20 11/30/18 18:23 Range/Units White Blood Count 12.5 H 4.3-11.0 10^3/uL Red Blood Count 5.21 4.35-5.85 10^6/uL Hemoglobin 12.5 11.5-16.0 G/DL Hematocrit 39 35-52 % Mean Corpuscular Volume 75 L 80-99 FL Mean Corpuscular Hemoglobin 24 L 25-34 PG Mean Corpuscular Hemoglobin Concent 32 32-36 G/DL Red Cell Distribution Width 16.9 H 10.0-14.5 % Platelet Count 533 H 130-400 10^3/uL Mean Platelet Volume 9.5 7.4-10.4 FL Neutrophils (%) (Auto) 72 42-75 % Lymphocytes (%) (Auto) 20 12-44 % Monocytes (%) (Auto) 7 0-12 % Eosinophils (%) (Auto) 1 0-10 % Basophils (%) (Auto) 0 0-10 % Neutrophils # (Auto) 9.0 H 1.8-7.8 X 10^3 Lymphocytes # (Auto) 2.5 1.0-4.0 X 10^3 Monocytes # (Auto) 0.8 0.0-1.0 X 10^3 Eosinophils # (Auto) 0.1 0.0-0.3 10^3/uL Basophils # (Auto) 0.1 0.0-0.1 10^3/uL D-Dimer 0.41 0.00-0.49 UG/ML Sodium Level 138 135-145 MMOL/L Potassium Level 3.7 3.6-5.0 MMOL/L Chloride Level 103 98-107 MMOL/L Carbon Dioxide Level 21 21-32 MMOL/L Anion Gap 14 5-14 MMOL/L Blood Urea Nitrogen 10 7-18 MG/DL Creatinine 0.95 0.60-1.30 MG/DL Estimat Glomerular Filtration Rate > 60 BUN/Creatinine Ratio 11 Glucose Level 117 H 70-105 MG/DL Calcium Level 10.0 8.5-10.1 MG/DL Corrected Calcium 9.6 8.5-10.1 MG/DL Total Bilirubin 0.6 0.1-1.0 MG/DL Aspartate Amino Transf (AST/SGOT) 19 5-34 U/L Alanine Aminotransferase (ALT/SGPT) 18 0-55 U/L Alkaline Phosphatase 59 40-136 U/L Troponin I < 0.028 <0.028 NG/ML Total Protein 7.9 6.4-8.2 GM/DL Albumin 4.5 3.2-4.5 GM/DL Thyroid Stimulating Hormone (TSH) 3.38 0.35-4.94 UIU/ML Serum Test, Qualitative NEGATIVE NEGATIVE Urine Color YELLOW Urine Clarity VERY CLOUDY H Urine pH 5 5-9 Urine Specific [place] 1.020 1.016-1.022 Urine Protein 2+ H NEGATIVE Urine Glucose (UA) NEGATIVE NEGATIVE Urine Ketones 2+ H NEGATIVE Urine Nitrite NEGATIVE NEGATIVE Urine Bilirubin 1+ H NEGATIVE Urine Urobilinogen 1 NORMAL MG/DL Urine Leukocyte Esterase 2+ H NEGATIVE Urine RBC (Auto) 1+ H NEGATIVE Urine RBC NONE /HPF Urine WBC >100 H /HPF Urine Squamous Epithelial Cells 5-10 /HPF Urine Crystals NONE /LPF Urine Bacteria LARGE H /HPF Urine Casts NONE /LPF Urine Mucus SMALL H /LPF Urine Culture Indicated YES My Orders Orders - ALIYAH ORO APRN Alprazolam Tablet (Xanax Tablet) (11/30/18 18:15) Cbc With Automated Diff (11/30/18 18:15) Comprehensive Metabolic Panel (11/30/18 18:15) Fibrin Degradation Products (11/30/18 18:15) Hcg,Qualitative Serum (11/30/18 18:15) Troponin I (11/30/18 18:15) Ekg Tracing (11/30/18 18:15) Thyroid Stimulating Hormone (11/30/18 18:22) Ua Culture If Indicated (11/30/18 18:22) Acetaminophen Tablet/Caplet (Tylenol T (11/30/18 18:30) Ibuprofen Tablet (Motrin Tablet) (11/30/18 18:30) Lactated Ringers (Lr 1000 Ml Iv Solution (11/30/18 18:45) Chest 1 View, Ap/Pa Only (11/30/18 18:58) Urine Culture (11/30/18 18:23) Ceftriaxone For Iv Use (Rocephin For I (11/30/18 19:30) Medications Given in ED Current Medications Medications Dose Ordered Sig/Emmanuel Route Start Time Stop Time Status Last Admin Dose Admin Acetaminophen 650 mg ONCE ONCE PO 11/30/18 18:30 11/30/18 18:31 DC 11/30/18 18:46 650 MG Ceftriaxone Sodium 1000 mg/ Sterile Water 10 ml @ 200 mls/hr ONCE ONCE IV 11/30/18 19:30 11/30/18 19:32 DC 11/30/18 19:40 200 MLS/HR Ibuprofen 800 mg ONCE ONCE PO 11/30/18 18:30 11/30/18 18:31 DC 11/30/18 18:46 800 MG Vital Signs/I&O 11/30/18 18:15 Temp 101.0 Pulse 112 Resp 18 B/P (MAP) 136/118 (124) Pulse Ox 97 O2 Delivery Room Air Capillary Refill : Departure Impression Primary Impression: Urinary tract infection Qualified Codes: N30.00 - Acute cystitis without hematuria Disposition: HOME, SELF-CARE Condition: Stable Departure-Patient Inst. Decision time for Depature: 20:03 Referrals: NO,LOCAL PHYSICIAN (PCP/Family) Primary Care Physician Patient Instructions: Urinary Tract Infection, Child (DC) Scripts Sulfamethoxazole/Trimethoprim (Bactrim Ds Tablet) 1 Each Tablet 1 EACH PO BID, #14 TAB Prov: ALIYAH ORO APRN 11/30/18 ALIYAH ORO APRN Nov 30, 2018 18:28
[2018-11-30 18:29] LABS: BASOPHILS # (AUTO) 0.1 10^3/uL (0.0-0.1); BASOPHILS % (AUTO) 0 % (0-10); EOSINOPHILS # (AUTO) 0.1 10^3/uL (0.0-0.3); EOSINOPHILS % (AUTO) 1 % (0-10); HEMATOCRIT 39 % (35-52); HEMOGLOBIN 12.5 G/DL (11.5-16.0); LYMPHOCYTES # (AUTO) 2.5 X 10^3 (1.0-4.0); LYMPHOCYTES % (AUTO) 20 % (12-44); MEAN CORPUSCULAR HEMOGLOBIN 24 PG (25-34); MEAN CORPUSCULAR HGB CONC 32 G/DL (32-36); MEAN CORPUSCULAR VOLUME 75 FL (80-99); MEAN PLATELET VOLUME 9.5 FL (7.4-10.4); MONOCYTES # (AUTO) 0.8 X 10^3 (0.0-1.0); MONOCYTES % (AUTO) 7 % (0-12); NEUTROPHILS % (AUTO) 72 % (42-75); PLATELET COUNT 533 10^3/uL (130-400); RED CELL DISTRIBUTION WIDTH 16.9 % (10.0-14.5); WHITE BLOOD COUNT 12.5 10^3/uL (4.3-11.0)
[2018-11-30 18:29] LABS: BILIRUBIN,URINE 1+ (NEGATIVE); CLARITY,URINE VERY CLOUDY; COLOR,URINE YELLOW; GLUCOSE, URINE (UA) NEGATIVE (NEGATIVE); KETONES,URINE 2+ (NEGATIVE); LEUKOCYTE ESTERASE ,URINE 2+ (NEGATIVE); NITRITE,URINE NEGATIVE (NEGATIVE); PH,URINE 5 (5-9); PROTEIN,URINE 2+ (NEGATIVE); UROBILINOGEN,URINE 1 MG/DL (NORMAL)
[2018-11-30] MEDS ORDERED: IBUPROFEN 800 MG (MOTRIN) TAB PO ONE (18:30)
[2018-11-30] MEDS ORDERED: ACETAMINOPHEN 325 MG TABLET PO ONE (18:30)
[2018-11-30] MEDS ORDERED: LACTATED RINGERS 1,000 ML IV SCH (18:45)
--- NOTE | 2018-11-30 18:47 | NUR ---
REPORT TO ROBYN
[2018-11-30 18:48] LABS: ALANINE AMINOTRANSFERASE 18 U/L (0-55); ALBUMIN 4.5 GM/DL (3.2-4.5); ALKALINE PHOSPHATASE 59 U/L (40-136); BILIRUBIN,TOTAL 0.6 MG/DL (0.1-1.0); BUN/CREATININE RATIO 11; CARBON DIOXIDE 21 MMOL/L (21-32); CHLORIDE 103 MMOL/L (98-107); CREATININE SERUM 0.95 MG/DL (0.60-1.30); GFR ESTIMATED > 60; GLUCOSE 117 MG/DL (70-105); POTASSIUM 3.7 MMOL/L (3.6-5.0); SODIUM 138 MMOL/L (135-145); TOTAL PROTEIN 7.9 GM/DL (6.4-8.2)
--- NOTE | 2018-11-30 19:15 | NUR ---
PT TEMP ASSESSED TO BE 98.2 TYMPANICALLY
[2018-11-30 19:21] LABS: WBC,URINE >100 /HPF
[2018-11-30 19:22] LABS: BACTERIA,URINE LARGE /HPF
[2018-11-30] MEDS ORDERED: cefTRIAXone FOR IV USE 1,000 MG in WATER (STERILE) FOR INJECTION 10 ML IV ONE (19:30)
--- NOTE | 2018-11-30 19:44 | Diagnostic Imaging Report ---
EXAM: CHEST 1 VIEW, AP/PA ONLY. INDICATION: Fever. Tachycardia. COMPARISON: Chest radiographs, 10/11/2018. FINDINGS: Persistent consolidation in the right lung base. Normal heart size and central pulmonary vascularity. No pleural effusion or pneumothorax. No acute osseous findings. IMPRESSION: Persistent consolidation in the right lung base is indeterminate. Given the stability over approximately six weeks, findings may be due to a chronic process such as scarring. An external opacity is not excluded given the single views on both exams. Dictated by: Dictated on workstation # [id number]
--- OUTSIDE RECORDS SUMMARY | 2018-11-30 20:01 | XMS REPORT | Continuity of Care Document ---
Author Organization Unknown Address Unknown Allergies Active Description Code Type Severity Reaction Onset Reported/Identified Relationship to Patient Clinical Status Yes amoxicillin [id number] Drug Allergy Unknown N/A 09/29/2018 Medications There is no data. Problems Date Dx Coded Attending Type Code Diagnosis Diagnosed By 09/29/2018 MILAGRO MAYS MD, Ot F41.9 ANXIETY DISORDER, UNSPECIFIED 09/29/2018 MILAGRO MAYS MD, Ot K21.9 GASTRO-ESOPHAGEAL REFLUX DISEASE WITHOUT 09/29/2018 MILAGRO MAYS MD Ot R07.89 OTHER CHEST PAIN 09/29/2018 MILAGRO MAYS MD Ot Z86.79 PERSONAL HISTORY OF OTHER DISEASES OF 09/29/2018 MILAGRO MAYS MD Ot Z88.0 ALLERGY STATUS TO PENICILLIN 09/29/2018 MILAGRO MAYS MD Ot Z98.890 OTHER SPECIFIED POSTPROCEDURAL STATES 10/04/2018 MILAGRO MAYS MD, Ot F41.9 ANXIETY DISORDER, UNSPECIFIED 10/04/2018 MILAGRO MAYS MD Ot K21.9 GASTRO-ESOPHAGEAL REFLUX DISEASE WITHOUT 10/04/2018 MILAGRO MAYS MD Ot R07.89 OTHER CHEST PAIN 10/04/2018 MILAGRO MAYS MD Ot Z86.79 PERSONAL HISTORY OF OTHER DISEASES OF TH 10/04/2018 MILAGRO MAYS MD Ot Z88.0 ALLERGY STATUS TO PENICILLIN 10/04/2018 MILAGRO MAYS MD Ot Z98.890 OTHER SPECIFIED POSTPROCEDURAL STATES 10/11/2018 LUANA ANDRADE DO Ot E66.01 MORBID (SEVERE) OBESITY DUE TO EXCESS CA 10/11/2018 LUANA ANDRADE DO Ot F41.9 ANXIETY DISORDER, UNSPECIFIED 10/11/2018 LUANA ANDRADE DO Ot G43.909 MIGRAINE, UNSP, NOT INTRACTABLE, WITHOUT 10/11/2018 LUANA ANDRADE DO Ot K21.9 GASTRO-ESOPHAGEAL REFLUX DISEASE WITHOUT 10/11/2018 LUPE DO, LUANA Manuel Ot R07.89 OTHER CHEST PAIN 10/11/2018 LUPE LUANA HERBERT Ot Z87.74 PERSONAL HISTORY OF CONGENITAL MALFORM O 10/11/2018 LUPE DOLUANA Ot Z88.0 ALLERGY STATUS TO PENICILLIN 10/11/2018 LUPE DO, LUANA K Ot Z98.890 OTHER SPECIFIED POSTPROCEDURAL STATES 10/13/2018 LUPE LUANA HERBERT Ot E66.01 MORBID (SEVERE) OBESITY DUE TO EXCESS CA 10/13/2018 LUPE DO, LUANA Jackson Ot F41.9 ANXIETY DISORDER, UNSPECIFIED 10/13/2018 LUPE , LUANA Jackson Ot G43.909 MIGRAINE, UNSP, NOT INTRACTABLE, WITHOUT 10/13/2018 LUPE DO, LUANA K Ot K21.9 GASTRO-ESOPHAGEAL REFLUX DISEASE WITHOUT 10/13/2018 LUPE DOSOFIA Manuel Ot R07.89 OTHER CHEST PAIN 10/13/2018 LUPE DOLUANA Ot Z87.74 PERSONAL HISTORY OF CONGENITAL MALFORM O 10/13/2018 LUPE DOLUANA Ot Z88.0 ALLERGY STATUS TO PENICILLIN 10/13/2018 LUPE DO, LUANA K Ot Z98.890 OTHER SPECIFIED POSTPROCEDURAL STATES Procedures [...] 10/11/18 00:15 BNP level 20.1 pg/mL <100.0 Complete blood count (CBC) with automated white blood cell (WBC) differential - 11/30/18 18:20 Blood leukocytes automated count (number/volume) 12.5 10*3/uL 4.3-11.0 Blood erythrocytes automated count (number/volume) 5.21 10*6/uL 4.35-5.85 Venous blood hemoglobin measurement (mass/volume) 12.5 g/dL 11.5-16.0 Blood hematocrit (volume fraction) 39 % 35-52 Automated erythrocyte mean corpuscular volume 75 [foz_us] 80-99 Automated erythrocyte mean corpuscular hemoglobin (mass per erythrocyte) 24 pg 25-34 Automated erythrocyte mean corpuscular hemoglobin concentration measurement (mass/volume) 32 g/dL 32-36 Automated erythrocyte distribution width ratio 16.9 % 10.0- 14.5 Automated blood platelet count (count/volume) 533 10*3/uL 130-400 Automated blood platelet mean volume measurement 9.5 [foz_us] 7.4-10.4 Automated blood neutrophils/100 leukocytes 72 % 42-75 Automated blood lymphocytes/100 leukocytes 20 % 12-44 Blood monocytes/100 leukocytes 7 % 0-12 Automated blood eosinophils/100 leukocytes 1 % 0-10 Automated blood basophils/100 leukocytes 0 % 0-10 Blood neutrophils automated count (number/volume) 9.0 10*3 1.8-7.8 Blood lymphocytes automated count (number/volume) 2.5 10*3 1.0-4.0 Blood monocytes automated count (number/volume) 0.8 10*3 0.0- 1.0 Automated eosinophil count 0.1 10*3/uL 0.0-0.3 Automated blood basophil count (count/volume) 0.1 10*3/uL 0.0-0.1 Serum or plasma choriogonadotropin ( test) detection - 11/30/18 18:20 Serum or plasma choriogonadotropin ( test) detection NEGATIVE NEGATIVE Fibrin D-dimer FEU measurement in platelet poor plasma (mass/volume) - 11/30/18 18:20 Fibrin D-dimer FEU measurement in platelet poor plasma (mass/volume) 0.41 ug/mL 0.00-0.49 Comprehensive metabolic panel - 11/30/18 18:20 Serum or plasma sodium measurement (moles/volume) 138 mmol/L 135-145 Serum or plasma potassium measurement (moles/volume) 3.7 mmol/L 3.6-5.0 Serum or plasma chloride measurement (moles/volume) 103 mmol/L 98-107 Carbon dioxide 21 mmol/L 21-32 Serum or plasma anion gap determination (moles/volume) 14 mmol/L 5-14 Serum or plasma urea nitrogen measurement (mass/volume) 10 mg/dL 7-18 Serum or plasma creatinine measurement (mass/volume) 0.95 mg/dL 0.60-1.30 Serum or plasma urea nitrogen/creatinine mass ratio 11 NRG Serum or plasma creatinine measurement with calculation of estimated glomerular filtration rate > NRG Serum or plasma glucose measurement (mass/volume) 117 mg/dL 70-105 Serum or plasma calcium measurement (mass/volume) 10.0 mg/dL 8.5-10.1 Serum or plasma total bilirubin measurement (mass/volume) 0.6 mg/dL 0.1-1.0 Serum or plasma alkaline phosphatase measurement (enzymatic activity/volume) 59 U/L 40-136 Serum or plasma aspartate aminotransferase measurement (enzymatic activity/volume) 19 U/L 5-34 Serum or plasma alanine aminotransferase measurement (enzymatic activity/volume) 18 U/L 0-55 Serum or plasma protein measurement (mass/volume) 7.9 g/dL 6.4-8.2 Serum or plasma albumin measurement (mass/volume) 4.5 g/dL 3.2-4.5 CALCIUM CORRECTED 9.6 mg/dL 8.5-10.1 Serum or plasma troponin i.cardiac measurement (mass/volume) - 11/30/18 18:20 Serum or plasma troponin i.cardiac measurement (mass/volume) < ng/mL <0.028 THYROID STIMULATING HORMONE - 11/30/18 18:20 THYROID STIMULATING HORMONE 3.38 u[iU]/mL 0.35-4.94 Complete urinalysis with reflex to culture - 11/30/18 18:23 Urine color determination YELLOW NRG Urine clarity determination VERY CLOUDY NRG Urine pH measurement by test strip 5 5-9 Specific gravity of urine by test strip 1.020 1.016-1.022 Urine protein assay by test strip, semi-quantitative 2+ NEGATIVE Urine glucose detection by automated test strip NEGATIVE NEGATIVE Erythrocytes detection in urine sediment by light microscopy 1+ NEGATIVE Urine ketones detection by automated test strip 2+ NEGATIVE Urine nitrite detection by test strip NEGATIVE NEGATIVE Urine total bilirubin detection by test strip 1+ NEGATIVE Urine urobilinogen measurement by automated test strip (mass/volume) 1 mg/dL NORMAL Urine leukocyte esterase detection by dipstick 2+ NEGATIVE Automated urine sediment erythrocyte count by microscopy (number/high power field) NONE NRG Automated urine sediment leukocyte count by microscopy (number/high power field) > [HPF] NRG Bacteria detection in urine sediment by light microscopy LARGE NRG Squamous epithelial cells detection in urine sediment by light microscopy 5-10 NRG Crystals detection in urine sediment by light microscopy NONE NRG Casts detection in urine sediment by light microscopy NONE NRG Mucus detection in urine sediment by light microscopy SMALL NRG Complete urinalysis with reflex to culture YES NRG Encounters ACCT No. Visit Date/Time Discharge Status Pt. Type Provider Facility Loc./Unit Complaint [id number] 10/11/2018 11:00:00 10/11/2018 23:59:59 CLS Outpatient [facility] [id number] 10/10/2018 22:38:00 10/11/2018 02:13:00 DIS Emergency LUANA ANDRADE DO [facility] ANXIETY [id number] 09/29/2018 20:27:00 09/29/2018 22:05:00 DIS Alexa MAYS MD, MILAGRO Fischer [facility] CP [id number] 11/30/2018 18:30:00 Document Registration
[2018-11-30] MEDS ORDERED: SULF1TAB35 PO (20:04)
[2018-11-30 20:17] VITALS: BP 132/87
== END 2018-11-30 20:18 | disposition home or self-care (01) ==
LOC: EDUNIT# 18:09 → ER 18:10
DX: N39.0 Urinary tract infection, site not specified (principal); Q24.9 Congenital malformation of heart, unspecified; G43.909 Migraine, unspecified, not intractable, without status migrainosus; K21.9 Gastro-esophageal reflux disease without esophagitis; E66.01 Morbid (severe) obesity due to excess calories; F41.0 Panic disorder [episodic paroxysmal anxiety]; Z88.1 Allergy status to other antibiotic agents
CPT/HCPCS: 36415; 71045; 80053; 81000; 84443; 84484; 84703; 85025; 85379; 87088; 93005

== ENCOUNTER 2021-01-25 19:18 | Emergency (ER) | payer MEDICAID, OTHER ==
[~2021-01-25] VITALS: Ht 160 cm; Wt 134.7 kg
[~2021-01-25 19:18] MED LIST changes: +SULF1TAB38 PO
[2021-01-25 19:50] VITALS: BP 111/54
[2021-01-25 20:10] LABS: BILIRUBIN,URINE NEGATIVE (NEGATIVE); COLOR,URINE YELLOW; GLUCOSE, URINE (UA) NEGATIVE (NEGATIVE); KETONES,URINE NEGATIVE (NEGATIVE); LEUKOCYTE ESTERASE ,URINE NEGATIVE (NEGATIVE); NITRITE,URINE NEGATIVE (NEGATIVE); PROTEIN,URINE NEGATIVE (NEGATIVE)
[2021-01-25] MEDS ORDERED: IBUPROFEN 800 MG (MOTRIN) TAB PO STA (20:12)
--- NOTE | 2021-01-25 20:12 | ED GU-Female ---
General Stated Complaint: N/V,LOW BACK PAIN,PAINFUL URINATION,SORE THROAT History of Present Illness Date Seen by Provider: Jan 25, 2021 Time Seen by Provider: 19:50 Initial Comments 25-year-old female presents for low back pain that is worse on the right and painful urination. The patient reports no urinary tract infection for the last 2 to 3 years. She denies a history of kidney stones. She denies any blood in her urine. She reports her sore throat is related to sinus drainage that she has been having from allergies and her new CPAP machine. She denies any cough, congestion or fever. She received both COVID injections in September 2020. Timing/Duration: this morning (AFRICA SOLO) Allergies and Home Medications Allergies Coded Allergies: amoxicillin (Verified Allergy, Unknown, 09/29/18) Patient Home Medication List Home Medication List Reviewed: Yes (AFRICA SOLO) Ondansetron (Ondansetron Odt) 4 Mg Tab.rapdis, 4 MG PO Q4H Prescribed by: LUANA ANDRADE on 10/11/18154 Sulfamethoxazole/Trimethoprim (Bactrim Ds Tablet) 1 Each Tablet, 1 EACH PO BID Prescribed by: ALIYAH ORO on 11/30/182003 Sulfamethoxazole/Trimethoprim (Bactrim Ds Tablet) 1 Each Tablet, 1 EACH PO BID Prescribed by: AFRICA SOLO on 01/25/212028 Review of Systems Review of Systems Constitutional: no symptoms reported, see HPI; No fever, No malaise Respiratory: no symptoms reported, see HPI Genitourinary: see HPI; denies discharge; dysuria, frequency, flank pain (Right); denies hematuria, denies incontinence; pain; denies urgency : No LMP: Dec 08, 2020 (AFRICA SOLO) Past Fwbwcup-Tzmuwk-Ejnzua Hx Immunizations Up To Date Tetanus Booster (TDap): Unknown PED Vaccines UTD: Yes (AFRICA SOLO) Seasonal Allergies Seasonal Allergies: No (AFRICA SOLO) Past Medical History 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4; EGD) Cardiac, Open Heart Surgery Respiratory: No Cardiac: Yes (OPEN HEART SURGERY AT AGE 4 TO REPAIR HOLES IN HEART ; RBBB) Congenital Heart Disease Neurological: Yes Headaches /Migraines Female Reproductive Disorders: Menstrual Problems Genitourinary: No Gastrointestinal: Yes Gastroesophageal Reflux Musculoskeletal: No Endocrine: Yes ( MORBID OBESITY) HEENT: No Cancer: No Psychosocial: Yes (PANIC ATTACKS) Anxiety Integumentary: No Blood Disorders: No (AFRICA SOLOP) Family Medical History Reviewed Nursing Family Hx (AFRICA SOLOP) Physical Exam Vital Signs Vital Signs - First Documented 01/25/21 19:50 Temp 36.4 Pulse 85 Resp 20 B/P (MAP) 111/54 (73) Pulse Ox 100 O2 Delivery Room Air (LUANA ANDRADE DO) Vital Signs Capillary Refill : (AFRICA SOLO) Height, Weight, BMI Height: 5'3.00" Weight: 297lbs. oz. 134.360307vv; BMI Method:Stated General Appearance: WD/WN, no apparent distress, obese Cardiovascular: normal peripheral pulses, regular rate, rhythm, no edema, no murmur Respiratory: chest non-tender, lungs clear, normal breath sounds Gastrointestinal: normal bowel sounds, non tender, soft; No rebound, No tenderness Back: normal inspection, no vertebral tenderness, CVA tenderness (R); No CVA tenderness (L) Extremities: normal range of motion, non-tender, normal inspection, normal capillary refill Neurologic/Psychiatric: no motor/sensory deficits, alert, normal mood/affect, oriented x 3 Skin: normal color, warm/dry (AFRICA SOLO) Progress/Results/Core Measures Suspected Sepsis SIRS Temperature: Pulse: Respiratory Rate: Blood Pressure / Mean: (AFRICA SOLO) Results/Orders Lab Results Laboratory Tests Test 01/25/21 19:58 Range/Units Urine Color YELLOW Urine Clarity SL CLOUDY Urine pH 6.0 5-9 Urine Specific [place] >=1.030 1.016-1.022 Urine Protein NEGATIVE NEGATIVE Urine Glucose (UA) NEGATIVE NEGATIVE Urine Ketones NEGATIVE NEGATIVE Urine Nitrite NEGATIVE NEGATIVE Urine Bilirubin NEGATIVE NEGATIVE Urine Urobilinogen 0.2 < = 1.0 MG/DL Urine Leukocyte Esterase NEGATIVE NEGATIVE Urine RBC (Auto) 3+ H NEGATIVE Urine RBC 0-2 /HPF Urine WBC 5-10 H /HPF Urine Squamous Epithelial Cells 5-10 /HPF Urine Crystals NONE /LPF Urine Bacteria MODERATE H /HPF Urine Casts NONE /LPF Urine Mucus SMALL H /LPF Urine Culture Indicated YES (LUPE,LUANA K DO) Vital Signs/I&O 01/25/21 19:50 Temp 36.4 Pulse 85 Resp 20 B/P (MAP) 111/54 (73) Pulse Ox 100 O2 Delivery Room Air (LUANA ANDRADE DO) Vital Signs/I&O Capillary Refill : (AFRICA SOLO) Departure Impression Primary Impression: UTI (urinary tract infection) Qualified Codes: N30.01 - Acute cystitis with hematuria Disposition: HOME, SELF-CARE Condition: Improved Departure-Patient Inst. Decision time for Depature: 20:20 (AFRICA SOLO) Referrals: [facility],LOCAL PHYSICIAN (PCP) Primary Care Physician Patient Instructions: Urinary Tract Infection, Adult (DC) Add. Discharge Instructions: Increase water intake, 16 ounces every 2 hours while awake. Drink 1 cup of cranberry juice or eat 1 cup of fresh blueberries daily. Alternate between Tylenol 650 mg and ibuprofen 600 mg every 4 hours for pain or swelling. Take antibiotics as prescribed. Empty bladder frequently, every 2 hours while awake. Return to the emergency department for new, urgent healthcare needs. Scripts Sulfamethoxazole/Trimethoprim (Bactrim Ds Tablet) 1 Each Tablet 1 EACH PO BID, #10 TAB 0 Refills Prov: AFRICA SOLO 01/25/21 ATTENDING PHYSICIAN NOTE: I WAS PHYSICALLY PRESENT ER PHYSICIAN WHEN THIS PATIENT WAS IN ER, BUT WAS NOT INVOLVED IN DECISION MAKING OR ANY CARE OF THIS PATIENT. (LUANA ANDRADE DO) AFRICA SOLO Jan 25, 2021 20:12 LUANA ANDRADE DO Jan 26, 2021 04:20
[2021-01-25 20:17] LABS: CLARITY,URINE SL CLOUDY
[2021-01-25 20:19] LABS: BACTERIA,URINE MODERATE /HPF; RBC,URINE 0-2 /HPF
[2021-01-25] MEDS ORDERED: RX-TRIMETH/SULFA. 160-800 MG (BACTRIM DS) TAB PPK#2 PO STA (20:27)
[2021-01-25] MEDS ORDERED: SULF1TAB38 PO (20:29)
== END 2021-01-25 20:35 | disposition home or self-care (01) ==
LOC: EDUNIT# 19:18 → ER 19:24
DX: N39.0 Urinary tract infection, site not specified (principal); E66.01 Morbid (severe) obesity due to excess calories
CPT/HCPCS: 81000; 84703; 87088; 99283

== ENCOUNTER 2021-03-26 17:11 | Emergency (ER) | payer MEDICAID ==
[~2021-03-26] VITALS: Ht 160 cm; Wt 126.0 kg
--- NOTE | 2021-03-26 17:54 | ED General ---
General Chief Complaint: Abdominal/GI Problems Stated Complaint: ABD PAIN/VOMITING Nursing Triage Note: PT AMB TO RM 6 PT CO OF NAUSEA AND SL BACK PAIN TODAY. PT STATES WOKE UP IN MIDDLE NIGHT FEELING POORLY CALLED EMS THEN REFUSED TRANSPORT, PT WENT TO WORK AND WAS SENT HOME Source of Information: Patient Exam Limitations: No Limitations History of Present Illness Date Seen by Provider: Mar 26, 2021 Time Seen by Provider: 17:50 Initial Comments To ER by private vehicle with a multitude of symptoms. Primarily she reports nausea and vomiting. This is been ongoing for about a week. No abdominal pain or diarrhea. She does have some low back pain and foul-smelling urine. She is sexually active and she also reports some whitish vaginal discharge. She also reports that she has been sneezing a lot since December. She also has a bruise to the left medial calf and 1 to the left arm and she is not sure how she got it. 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 Timing/Duration: 1-2 Days Severity: Moderate Associated Systoms: Denies Symptoms Allergies and Home Medications Allergies Coded Allergies: amoxicillin (Verified Allergy, Unknown, 09/29/18) Patient Home Medication List Home Medication List Reviewed: Yes Ondansetron (Ondansetron Odt) 4 Mg Tab.rapdis, 4 MG PO Q4H Prescribed by: LUANA ANDRADE on 10/11/18154 Sulfamethoxazole/Trimethoprim (Bactrim Ds Tablet) 1 Each Tablet, 1 EACH PO BID Prescribed by: ALIYAH ORO on 11/30/182003 Sulfamethoxazole/Trimethoprim (Bactrim Ds Tablet) 1 Each Tablet, 1 EACH PO BID Prescribed by: AFRICA SOLO on 01/25/212028 Review of Systems Review of Systems Constitutional: see HPI; No chills, No diaphoresis, No fever EENTM: see HPI, nose congestion (sneezing) Respiratory: no symptoms reported; No cough, No dyspnea on exertion, No short of breath Cardiovascular: no symptoms reported; No chest pain, No edema, No Hx of Intervention Gastrointestinal: see HPI; No abdominal pain, No constipation, No diarrhea, No dysphagia; nausea, vomiting Genitourinary: see HPI, dysuria Musculoskeletal: see HPI, back pain Skin: no symptoms reported Hematologic/Lymphatic: No Symptoms Reported Past Irsoqis-Dresgw-Lmyzis Hx Patient Social History Tobacco Use?: No Substance use?: No Alcohol Use?: Yes Alcohol Frequency: Rarely Pt feels they are or have been: No Immunizations Up To Date Tetanus Booster (TDap): Unknown PED Vaccines UTD: Yes First/Initial COVID19 Vaccinat: SEPTEMBER 2020 Second COVID19 Vaccination Simon: PT STATES TAKEN 2ND DOSE COVID19 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 Seasonal Allergies Seasonal Allergies: No Past Medical History 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4; EGD) Cardiac, Open Heart Surgery Respiratory: No Cardiac: Yes (OPEN HEART SURGERY AT AGE 4 TO REPAIR HOLES IN HEART ; RBBB) Congenital Heart Disease Neurological: Yes Headaches /Migraines Last Menstrual Period: Mar 19, 2021 Female Reproductive Disorders: Menstrual Problems Genitourinary: No Gastrointestinal: Yes Gastroesophageal Reflux Musculoskeletal: No Endocrine: Yes ( MORBID OBESITY) HEENT: No Cancer: No Psychosocial: Yes (PANIC ATTACKS) Anxiety Integumentary: No Blood Disorders: No Physical Exam Vital Signs Vital Signs - First Documented 03/26/21 17:19 Temp 36.6 Pulse 87 Resp 18 B/P (MAP) 138/93 (108) Pulse Ox 100 Capillary Refill : Less Than 3 Seconds Height, Weight, BMI Height: 5'3.00" Weight: 297lbs. oz. 134.384892vm; 49.00 BMI Method:Stated General Appearance: No Apparent Distress, WD/WN, Obese, Other (There is without apparent distress, alert and oriented very pleasant. Hemodynamically stable without tachycardia fever hypoxia or hypotension.) Eyes: Bilateral Eye Normal Inspection, Bilateral Eye PERRL, Bilateral Eye EOMI HEENT: PERRL/EOMI, TMs Normal Neck: Full Range of Motion, Normal Inspection Respiratory: No Accessory Muscle Use, No Respiratory Distress Cardiovascular: Regular Rate, Rhythm, Normal Peripheral Pulses Gastrointestinal: Non Tender, Soft Extremity: Normal Capillary Refill, Normal Inspection Neurologic/Psychiatric: Alert, Oriented x3 Skin: Normal Color, Warm/Dry Progress/Results/Core Measures Suspected Sepsis SIRS Temperature: Pulse: 87 Respiratory Rate: 18 Laboratory Tests 03/26/21 18:37: White Blood Count 10.7 Blood Pressure 138 /93 Mean: 108 Laboratory Tests 03/26/21 18:37: Creatinine 0.93, INR Comment 1.1, Platelet Count 512H, Total Bilirubin 0.7 Results/Orders Lab Results Laboratory Tests Test 03/26/21 18:11 03/26/21 18:34 03/26/21 18:37 03/26/21 18:47 Range/Units Urine Color ORANGE Urine Clarity SL CLOUDY Urine pH 6.0 5-9 Urine Specific [place] >=1.030 1.016-1.022 Urine Protein NEGATIVE NEGATIVE Urine Glucose (UA) NEGATIVE NEGATIVE Urine Ketones NEGATIVE NEGATIVE Urine Nitrite NEGATIVE NEGATIVE Urine Bilirubin 1+ H NEGATIVE Urine Urobilinogen 0.2 < = 1.0 MG/DL Urine Leukocyte Esterase TRACE H NEGATIVE Urine RBC (Auto) NEGATIVE NEGATIVE Urine RBC NONE /HPF Urine WBC 2-5 /HPF Urine Crystals PRESENT H /LPF Urine Amorphous Sediment FEW VON URATES H /LPF Urine Bacteria TRACE /HPF Urine Casts NONE /LPF Urine Mucus SMALL H /LPF Urine Culture Indicated NO White Blood Count 10.7 4.3-11.0 10^3/uL Red Blood Count 4.88 3.80-5.11 10^6/uL Hemoglobin 12.0 11.5-16.0 g/dL Hematocrit 39 35-52 % Mean Corpuscular Volume 80 80-99 fL Mean Corpuscular Hemoglobin 25 25-34 pg Mean Corpuscular Hemoglobin Concent 31 L 32-36 g/dL Red Cell Distribution Width 15.3 H 10.0-14.5 % Platelet Count 512 H 130-400 10^3/uL Mean Platelet Volume 9.2 9.0-12.2 fL Immature Granulocyte % (Auto) 0 % Neutrophils (%) (Auto) 72 42-75 % Lymphocytes (%) (Auto) 21 12-44 % Monocytes (%) (Auto) 5 0-12 % Eosinophils (%) (Auto) 1 0-10 % Basophils (%) (Auto) 1 0-10 % Neutrophils # (Auto) 7.7 1.8-7.8 10^3/uL Lymphocytes # (Auto) 2.3 1.0-4.0 10^3/uL Monocytes # (Auto) 0.6 0.0-1.0 10^3/uL Eosinophils # (Auto) 0.1 0.0-0.3 10^3/uL Basophils # (Auto) 0.1 0.0-0.1 10^3/uL Immature Granulocyte # (Auto) 0.0 0.0-0.1 10^3/uL Prothrombin Time 14.1 12.2-14.7 SEC INR Comment 1.1 0.8-1.4 Activated Partial Thromboplast Time 30 24-35 SEC Sodium Level 140 135-145 MMOL/L Potassium Level 4.1 3.6-5.0 MMOL/L Chloride Level 102 98-107 MMOL/L Carbon Dioxide Level 23 21-32 MMOL/L Anion Gap 15 H 5-14 MMOL/L Blood Urea Nitrogen 11 7-18 MG/DL Creatinine 0.93 0.60-1.30 MG/DL Estimat Glomerular Filtration Rate 74 BUN/Creatinine Ratio 12 Glucose Level 82 70-105 MG/DL Calcium Level 9.7 8.5-10.1 MG/DL Corrected Calcium 9.4 8.5-10.1 MG/DL Total Bilirubin 0.7 0.1-1.0 MG/DL Aspartate Amino Transf (AST/SGOT) 18 5-34 U/L Alanine Aminotransferase (ALT/SGPT) 16 0-55 U/L Alkaline Phosphatase 66 40-136 U/L Total Protein 8.0 6.4-8.2 GM/DL Albumin 4.4 3.2-4.5 GM/DL Serum Test, Qualitative NEGATIVE NEGATIVE Test 03/26/21 18:53 Range/Units My Orders Orders - ALIYAH ORO APRN Cbc With Automated Diff (03/26/21 17:47) Comprehensive Metabolic Panel (03/26/21 17:47) Partial Thromboplastin Time (03/26/21 17:47) Protime With Inr (03/26/21 17:47) Hcg,Qualitative Serum (03/26/21 17:47) Covid 19 Inhouse Test (03/26/21 17:47) Wet Prep (03/26/21 17:47) Neisseria Gonorrhea Swab (03/26/21 17:47) Genital Culture (03/26/21 17:47) Chlamydia Trachomatis Swab (03/26/21 17:47) Ondansetron Oral Dissolve Tab (Zofran (03/26/21 18:00) Ua Culture If Indicated (03/26/21 18:09) Medications Given in ED Current Medications Medications Dose Ordered Sig/Emmanuel Route Start Time Stop Time Status Last Admin Dose Admin Ondansetron HCl 4 mg ONCE ONCE PO 03/26/21 18:00 03/26/21 18:01 DC 03/26/21 18:11 4 MG Vital Signs/I&O 03/26/21 17:19 Temp 36.6 Pulse 87 Resp 18 B/P (MAP) 138/93 (108) Pulse Ox 100 Capillary Refill : Less Than 3 Seconds Blood Pressure Mean: 108 Departure Impression Primary Impression: Nausea and vomiting Additional Impression: Allergic rhinitis Disposition: HOME, SELF-CARE Condition: Stable Departure-Patient Inst. Decision time for Depature: 19:09 Referrals: NO,LOCAL PHYSICIAN (PCP/Family) Primary Care Physician Patient Instructions: No Instuctions Given Add. Discharge Instructions: Medication as directed for the nausea and the allergic symptoms. Return to ER for any concerns. All discharge instructions reviewed with patient and/or family. Voiced understanding. Scripts Cetirizine HCl (Cetirizine HCl) 10 Mg Tablet 10 MG PO DAILY, #20 TAB Prov: ALIYAH ORO APRN 03/26/21 Ondansetron (Ondansetron Odt) 8 Mg Tab.rapdis 8 MG PO Q6H PRN for NAUSEA/VOMITING, #10 TAB Prov: ALIYAH ORO APRN 03/26/21 ALIYAH ORO APRN Mar 26, 2021 17:54
[2021-03-26] MEDS ORDERED: ONDANSETRON 4 MG (ZOFRAN) ORAL DISSOLVE TAB PO ONE (18:00)
[2021-03-26 18:15] LABS: CLARITY,URINE SL CLOUDY; COLOR,URINE ORANGE; GLUCOSE, URINE (UA) NEGATIVE (NEGATIVE); KETONES,URINE NEGATIVE (NEGATIVE); LEUKOCYTE ESTERASE ,URINE TRACE (NEGATIVE); NITRITE,URINE NEGATIVE (NEGATIVE); PROTEIN,URINE NEGATIVE (NEGATIVE)
[2021-03-26 18:30] LABS: BILIRUBIN,URINE 1+ (NEGATIVE)
[2021-03-26 18:32] LABS: AMORPHOUS SEDIMENT,UR FEW AMOR URATES /LPF; BACTERIA,URINE TRACE /HPF
[2021-03-26 18:41] LABS: BASOPHILS # (AUTO) 0.1 10^3/uL (0.0-0.1); BASOPHILS % (AUTO) 1 % (0-10); EOSINOPHILS # (AUTO) 0.1 10^3/uL (0.0-0.3); EOSINOPHILS % (AUTO) 1 % (0-10); HEMATOCRIT 39 % (35-52); LYMPHOCYTES # (AUTO) 2.3 10^3/uL (1.0-4.0); LYMPHOCYTES % (AUTO) 21 % (12-44); MEAN CORPUSCULAR HEMOGLOBIN 25 pg (25-34); MEAN CORPUSCULAR HGB CONC 31 g/dL (32-36); MEAN CORPUSCULAR VOLUME 80 fL (80-99); MEAN PLATELET VOLUME 9.2 fL (9.0-12.2); MONOCYTES # (AUTO) 0.6 10^3/uL (0.0-1.0); MONOCYTES % (AUTO) 5 % (0-12); NEUTROPHILS # (AUTO) 7.7 10^3/uL (1.8-7.8); NEUTROPHILS % (AUTO) 72 % (42-75); PLATELET COUNT 512 10^3/uL (130-400); WHITE BLOOD COUNT 10.7 10^3/uL (4.3-11.0)
[2021-03-26 18:47] LABS: ALBUMIN 4.4 GM/DL (3.2-4.5); POTASSIUM 4.1 MMOL/L (3.6-5.0)
[2021-03-26 18:48] LABS: CALCIUM 9.7 MG/DL (8.5-10.1)
[2021-03-26 18:51] LABS: BILIRUBIN,TOTAL 0.7 MG/DL (0.1-1.0)
[2021-03-26 18:53] LABS: CREATININE SERUM 0.93 MG/DL (0.60-1.30)
[2021-03-26 19:04] LABS: INR 1.1 (0.8-1.4); PROTHROMBIN TIME PATIENT 14.1 SEC (12.2-14.7)
[2021-03-26] MEDS ORDERED: CETI10TA17 PO (19:10)
[2021-03-26] MEDS ORDERED: ONDA8TAB13 PO (19:10)
[2021-03-26 19:37] VITALS: BP 133/79
== END 2021-03-26 19:34 | disposition home or self-care (01) ==
LOC: EDUNIT# 17:11 → ER 17:13
DX: R11.2 Nausea with vomiting, unspecified (principal); J30.9 Allergic rhinitis, unspecified; E66.01 Morbid (severe) obesity due to excess calories; Z68.42 Body mass index [BMI] 45.0-49.9, adult; Z20.822 Contact with and (suspected) exposure to COVID-19
CPT/HCPCS: 36415; 80053; 81000; 84703; 85025; 85610; 85730; 87070; 87205; 87210; 87491; 87591; 87636; 99283

== ENCOUNTER 2021-05-04 04:18 | Emergency (ER) | payer MEDICAID ==
[~2021-05-04] VITALS: Ht 160 cm; Wt 126.0 kg
[~2021-05-04 04:18] MED LIST changes: +CETI10TA17 PO; +ONDA8TAB13 PO
[2021-05-04] MEDS ORDERED: ONDANSETRON 4 MG/2 ML (SDV) Z0FRAN IVP ONE (05:00)
[2021-05-04 05:22] LABS: BASOPHILS # (AUTO) 0.1 10^3/uL (0.0-0.1); BASOPHILS % (AUTO) 1 % (0-10); EOSINOPHILS # (AUTO) 0.2 10^3/uL (0.0-0.3); EOSINOPHILS % (AUTO) 1 % (0-10); HEMATOCRIT 42 % (35-52); HEMOGLOBIN 12.6 g/dL (11.5-16.0); LYMPHOCYTES % (AUTO) 25 % (12-44); MEAN CORPUSCULAR HEMOGLOBIN 24 pg (25-34); MEAN CORPUSCULAR HGB CONC 30 g/dL (32-36); MEAN CORPUSCULAR VOLUME 80 fL (80-99); MEAN PLATELET VOLUME 9.8 fL (9.0-12.2); MONOCYTES # (AUTO) 0.9 10^3/uL (0.0-1.0); MONOCYTES % (AUTO) 7 % (0-12); NEUTROPHILS # (AUTO) 7.8 10^3/uL (1.8-7.8); NEUTROPHILS % (AUTO) 65 % (42-75); PLATELET COUNT 475 10^3/uL (130-400)
[2021-05-04 05:32] LABS: ALBUMIN 4.4 GM/DL (3.2-4.5); CHLORIDE 102 MMOL/L (98-107); POTASSIUM 3.8 MMOL/L (3.6-5.0); SODIUM 140 MMOL/L (135-145)
[2021-05-04 05:33] LABS: CALCIUM 9.7 MG/DL (8.5-10.1)
[2021-05-04 05:34] LABS: GLUCOSE 96 MG/DL (70-105)
[2021-05-04 05:35] LABS: CARBON DIOXIDE 24 MMOL/L (21-32)
[2021-05-04 05:36] LABS: BILIRUBIN,TOTAL 0.3 MG/DL (0.1-1.0)
[2021-05-04 05:38] LABS: ALKALINE PHOSPHATASE 76 U/L (40-136); CREATININE SERUM 0.81 MG/DL (0.60-1.30); GFR ESTIMATED 87
[2021-05-04 05:39] LABS: BUN/CREATININE RATIO 12; FIBRIN DEGRADATION PRODUCTS < 0.27 UG/ML (0.00-0.49); INR 0.9 (0.8-1.4); PARTIAL THROMBOPLASTIN TIME 25 SEC (24-35)
[2021-05-04 05:40] LABS: MAGNESIUM 2.1 MG/DL (1.6-2.4)
[2021-05-04 05:41] LABS: ALANINE AMINOTRANSFERASE 18 U/L (0-55)
--- NOTE | 2021-05-04 05:46 | Diagnostic Imaging Report ---
EXAMINATION: Chest 1 view HISTORY: Chest pain. COMPARISON: 11/30/2018. FINDINGS: The lung volumes are normal. No focal consolidation is seen. No large pleural effusion or pneumothorax is seen. The cardiomediastinal silhouette is normal in size and contour. No acute osseous abnormality is seen. IMPRESSION: 1. No acute pleuroparenchymal process. Dictated by: Dictated on workstation # [id number]
[2021-05-04 06:04] LABS: BILIRUBIN,URINE NEGATIVE (NEGATIVE); CLARITY,URINE CLEAR; COLOR,URINE YELLOW; GLUCOSE, URINE (UA) NEGATIVE (NEGATIVE); KETONES,URINE NEGATIVE (NEGATIVE); LEUKOCYTE ESTERASE ,URINE NEGATIVE (NEGATIVE); NITRITE,URINE NEGATIVE (NEGATIVE); PROTEIN,URINE NEGATIVE (NEGATIVE)
[2021-05-04 06:21] LABS: BACTERIA,URINE NEGATIVE /HPF
[2021-05-04 06:22] LABS: SQUAMOUS EPITHELIAL CELL,UR RARE /HPF
[2021-05-04 06:54] VITALS: BP 141/91
--- NOTE | 2021-05-04 06:58 | ED Chest Pain ---
General Chief Complaint: Chest Pain Stated Complaint: CHEST PAIN Nursing Triage Note: Patient states sudden onset of left sided chest pain that began approx. 30-45minutes prior to arrival. Patient states sharp stabbing pain rating at 9/10. Source: patient, EMS Exam Limitations: no limitations History of Present Illness Date Seen by Provider: May 04, 2021 Time Seen by Provider: 04:19 Initial Comments This 26-year-old young lady presents to the emergency room with complaints of sudden onset of left upper chest pain that is sharp in nature and worse with inspiration. She has associated shortness of breath. She vomited x1 associated with this pain. Onset was about 30 to 45 minutes prior to arrival. She denies any fever or cough. She reports history of some type of congenital heart disease that was surgically treated. Allergies and Home Medications Allergies Coded Allergies: amoxicillin (Verified Allergy, Unknown, 09/29/18) Patient Home Medication List Home Medication List Reviewed: Yes Cetirizine HCl (Cetirizine HCl) 10 Mg Tablet, 10 MG PO DAILY Prescribed by: ALIYAH ORO on 03/26/211909 Ondansetron (Ondansetron Odt) 4 Mg Tab.rapdis, 4 MG PO Q4H Prescribed by: LUANA ANDRADE on 10/11/18154 Ondansetron (Ondansetron Odt) 8 Mg Tab.rapdis, 8 MG PO Q6H PRN for NAUSEA/VOMI TING Prescribed by: ALIYAH ORO on 03/26/211909 Sulfamethoxazole/Trimethoprim (Bactrim Ds Tablet) 1 Each Tablet, 1 EACH PO BID Prescribed by: ALIYAH ORO on 11/30/182003 Sulfamethoxazole/Trimethoprim (Bactrim Ds Tablet) 1 Each Tablet, 1 EACH PO BID Prescribed by: AFRICA SOLO on 01/25/212028 Review of Systems Review of Systems Constitutional: no symptoms reported EENTM: No Symptoms Reported Respiratory: See HPI Cardiovascular: See HPI Gastrointestinal: See HPI Genitourinary: No Symptoms Reported Musculoskeletal: no symptoms reported Skin: no symptoms reported Psychiatric/Neurological: No Symptoms Reported Endocrine: No Symptoms Reported Hematologic/Lymphatic: No Symptoms Reported Past Jvhwxux-Vgldkx-Myihub Hx Patient Social History Tobacco Use?: No Substance use?: No Alcohol Use?: No Immunizations Up To Date Tetanus Booster (TDap): Unknown PED Vaccines UTD: Yes First/Initial COVID19 Vaccinat: 08/27 Second COVID19 Vaccination Simon: 09/26 Seasonal Allergies Seasonal Allergies: No Past Medical History Surgery/Hospitalization HX: asthma, anxiety 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4; EGD) Cardiac, Open Heart Surgery Respiratory: No Cardiac: Yes (OPEN HEART SURGERY AT AGE 4 TO REPAIR HOLES IN HEART ; RBBB) Congenital Heart Disease Neurological: Yes Headaches /Migraines Expected Date of Delivery: May 03, 2021 Female Reproductive Disorders: Menstrual Problems Genitourinary: No Gastrointestinal: Yes Gastroesophageal Reflux Musculoskeletal: No Endocrine: Yes ( MORBID OBESITY) HEENT: No Cancer: No Psychosocial: Yes (PANIC ATTACKS) Anxiety Integumentary: No Blood Disorders: No Physical Exam Vital Signs Vital Signs - First Documented 05/04/21 04:24 Temp 37.1 Pulse 94 Resp 18 B/P (MAP) 121/94 (103) Pulse Ox 99 O2 Delivery Room Air Capillary Refill : Less Than 3 Seconds Height, Weight, BMI Height: 5'3.00" Weight: 297lbs. oz. 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 winter II-XII Norm as Tested Skin: Normal Color, Warm/Dry Progress/Results/Core Measures Results/Orders Lab Results Laboratory Tests Test 05/04/21 05:02 05/04/21 05:15 05/04/21 05:18 Range/Units Influenza Type A (RT-PCR) Not Detected Not Detecte Influenza Type B (RT-PCR) Not Detected Not Detecte SARS-CoV-2 RNA (RT-PCR) Not Detected Not Detecte White Blood Count 12.0 H 4.3-11.0 10^3/uL Red Blood Count 5.27 H 3.80-5.11 10^6/uL Hemoglobin 12.6 11.5-16.0 g/dL Hematocrit 42 35-52 % Mean Corpuscular Volume 80 80-99 fL Mean Corpuscular Hemoglobin 24 L 25-34 pg Mean Corpuscular Hemoglobin Concent 30 L 32-36 g/dL Red Cell Distribution Width 15.3 H 10.0-14.5 % Platelet Count 475 H 130-400 10^3/uL Mean Platelet Volume 9.8 9.0-12.2 fL Immature Granulocyte % (Auto) 0 % Neutrophils (%) (Auto) 65 42-75 % Lymphocytes (%) (Auto) 25 12-44 % Monocytes (%) (Auto) 7 0-12 % Eosinophils (%) (Auto) 1 0-10 % Basophils (%) (Auto) 1 0-10 % Neutrophils # (Auto) 7.8 1.8-7.8 10^3/uL Lymphocytes # (Auto) 3.0 1.0-4.0 10^3/uL Monocytes # (Auto) 0.9 0.0-1.0 10^3/uL Eosinophils # (Auto) 0.2 0.0-0.3 10^3/uL Basophils # (Auto) 0.1 0.0-0.1 10^3/uL Immature Granulocyte # (Auto) 0.1 0.0-0.1 10^3/uL Prothrombin Time 12.0 L 12.2-14.7 SEC INR Comment 0.9 0.8-1.4 Activated Partial Thromboplast Time 25 24-35 SEC D-Dimer < 0.27 0.00-0.49 UG/ML Sodium Level 140 135-145 MMOL/L Potassium Level 3.8 3.6-5.0 MMOL/L Chloride Level 102 98-107 MMOL/L Carbon Dioxide Level 24 21-32 MMOL/L Anion Gap 14 5-14 MMOL/L Blood Urea Nitrogen 10 7-18 MG/DL Creatinine 0.81 0.60-1.30 MG/DL Estimat Glomerular Filtration Rate 87 BUN/Creatinine Ratio 12 Glucose Level 96 70-105 MG/DL Calcium Level 9.7 8.5-10.1 MG/DL Corrected Calcium 9.4 8.5-10.1 MG/DL Magnesium Level 2.1 1.6-2.4 MG/DL Total Bilirubin 0.3 0.1-1.0 MG/DL Aspartate Amino Transf (AST/SGOT) 19 5-34 U/L Alanine Aminotransferase (ALT/SGPT) 18 0-55 U/L Alkaline Phosphatase 76 40-136 U/L Myoglobin 52.5 10.0-92.0 NG/ML Troponin I < 0.028 <0.028 NG/ML Total Protein 8.0 6.4-8.2 GM/DL Albumin 4.4 3.2-4.5 GM/DL Lipase 9 8-78 U/L Serum Test, Qualitative NEGATIVE NEGATIVE Urine Color YELLOW Urine Clarity CLEAR Urine pH 6.0 5-9 Urine Specific [place] 1.015 L 1.016-1.022 Urine Protein NEGATIVE NEGATIVE Urine Glucose (UA) NEGATIVE NEGATIVE Urine Ketones NEGATIVE NEGATIVE Urine Nitrite NEGATIVE NEGATIVE Urine Bilirubin NEGATIVE NEGATIVE Urine Urobilinogen 0.2 < = 1.0 MG/DL Urine Leukocyte Esterase NEGATIVE NEGATIVE Urine RBC (Auto) 1+ H NEGATIVE Urine RBC 2-5 H /HPF Urine WBC NONE /HPF Urine Squamous Epithelial Cells RARE /HPF Urine Crystals NONE /LPF Urine Bacteria NEGATIVE /HPF Urine Casts NONE /LPF Urine Mucus NEGATIVE /LPF Urine Culture Indicated NO My Orders Orders - ANMOL WEINER MD Cbc With Automated Diff (05/04/21 04:56) Magnesium (05/04/21 04:56) Chest 1 View, Ap/Pa Only (05/04/21 04:56) Ekg Tracing (05/04/21 04:56) Comprehensive Metabolic Panel (05/04/21 04:56) Myoglobin Serum (05/04/21 04:56) Protime With Inr (05/04/21 04:56) Partial Thromboplastin Time (05/04/21 04:56) O2 (05/04/21 04:56) Monitor-Rhythm Ecg Trace Only (05/04/21 04:56) Ed Iv/Invasive Line Start (05/04/21 04:56) Covid 19 Inhouse Test (05/04/21 04:56) Influenza A And B By Pcr (05/04/21 04:56) Hcg,Qualitative Serum (05/04/21 04:56) Ondansetron Injection (Zofran Injectio (05/04/21 05:00) Fibrin Degradation Products (05/04/21 05:15) Troponin I Willacy (05/04/21 05:15) Lipase (05/04/21 05:40) Ua Culture If Indicated (05/04/21 05:56) Medications Given in ED Vital Signs/I&O 05/04/21 05/04/21 05/04/21 05/04/21 04:24 05:20 05:20 06:54 Temp 37.1 36.8 Pulse 94 94 87 Resp 18 20 18 B/P (MAP) 121/94 (103) 144/68 141/91 Pulse Ox 99 97 98 99 O2 Delivery Room Air Room Air Room Air Room Air Blood Pressure Mean: 93 Progress Progress Note : Progress Note Zofran was given for nausea. Chest pain seemed more pleuritic or musculoskeletal in nature, and work-up was unremarkable. See discharge in structions. Initial ECG Impression Date: May 04, 2021 Initial ECG Impression Time: 04:22 Initial ECG Rate: 92 Comment Sinus rhythm with right bundle branch block. No ST elevation or depression. No axis deviation. Similar to prior. Diagnostic Imaging Diagonstic Imaging: Xray Plain Films/CT/US/NM/MRI: chest Comments NAME: VIVIAN CASTILLO [facility] REC#: [id number] PT STATUS: REG ER : 1995 PHYSICIAN: ANMOL WEINER MD ADMIT DATE: 05/04/21/ER Signed Date of Exam:05/04/21 CHEST 1 VIEW, AP/PA ONLY EXAMINATION: Chest 1 view HISTORY: Chest pain. COMPARISON: 11/30/2018. FINDINGS: The lung volumes are normal. No focal consolidation is seen. No large pleural effusion or pneumothorax is seen. The cardiomediastinal silhouette is normal in size and contour. No acute osseous abnormality is seen. IMPRESSION: 1. No acute pleuroparenchymal process. Dictated by: Dictated on workstation # [id number] Dict: 05/04/2144 Trans: 05/04/2147 GAUTAM [id number] Interpreted by: LOY GAUTHIER DO Electronically signed by: LOY GAUTHIER DO 05/04/2147 Departure Impression Primary Impression: Nausea and vomiting Qualified Codes: R11.2 - Nausea with vomiting, unspecified Additional Impression: Atypical chest pain Disposition: 01 HOME, SELF-CARE Condition: Improved Departure-Patient Inst. Decision time for Depature: 06:51 Referrals: NO,LOCAL PHYSICIAN (PCP/Family) Primary Care Physician Patient Instructions: Nausea and Vomiting, Adult Add. Discharge Instructions: Drink plenty of clear liquids to stay well-hydrated. Gradually advance your diet with small quantities of bland food as tolerated. Use the Zofran as previously prescribed for nausea and vomiting. Follow-up with your primary care provider as needed. Call with questions or concerns. Return to ER if you have worsening symptoms. All discharge instructions reviewed with patient and/or family. Voiced understanding. Copy Copies To 1: PRASHANTH CAICEDO JOSHUA T MD May 04, 2021 06:58
== END 2021-05-04 07:00 | disposition home or self-care (01) ==
LOC: EDUNIT# 04:18 → ER 04:19
DX: R11.2 Nausea with vomiting, unspecified (principal); R07.89 Other chest pain; E66.01 Morbid (severe) obesity due to excess calories; J45.909 Unspecified asthma, uncomplicated; Q24.9 Congenital malformation of heart, unspecified; Z88.1 Allergy status to other antibiotic agents; Z20.822 Contact with and (suspected) exposure to COVID-19
CPT/HCPCS: 36415; 71045; 80053; 81000; 83690; 83735; 83874; 84484; 84703; 85025; 85379; 85610; 85730; 87636; 93005; 93041

== ENCOUNTER 2021-05-30 16:17 | Emergency (ER) | payer MEDICAID ==
--- NOTE | 2021-05-30 16:59 | ED EENT ---
History of Present Illness General Chief Complaint: Facial Problems Stated Complaint: FACIAL SWELLING Nursing Triage Note: PT TO ER BY EMS WITH C/O FACIAL SWELLING ON R SIDE. PT THINKS IT COULD BE RELATED TO THE BOX HAIR DYE SHE BOUGHT ON TUESDAY HER HEAD STARTED TO PEEL AND POSSIBLY GOT A CHEMICAL BURN FROM IT. Source: patient Exam Limitations: no limitations History of Present Illness Date Seen by Provider: May 30, 2021 Time Seen by Provider: 16:44 Initial Comments This is a well-appearing 26-year-old female who presented to the ER via [facility] for concerns of facial swelling, scalp irritation, hives on her right upper arm after dying her hair last night. States that she has had allergic reactions in the past but never to this extent. States she took 2 Benadryl last night before going to bed and washed her hair again before going to bed. Denies difficulty swallowing, throat pain, shortness of breath. Allergies and Home Medications Allergies Coded Allergies: amoxicillin (Verified Allergy, Unknown, 09/29/18) Patient Home Medication List Home Medication List Reviewed: Yes Cetirizine HCl (Cetirizine HCl) 10 Mg Tablet, 10 MG PO DAILY Prescribed by: ALIYAH ORO on 03/26/211909 Methylprednisolone (Methylprednisolone Dose Pack) 4 Mg Tablet, 4 MG PO UD Prescribed by: ASHLEE MONTILLA on 05/30/21 171 Ondansetron (Ondansetron Odt) 4 Mg Tab.rapdis, 4 MG PO Q4H Prescribed by: LUANA ANDRADE on 10/11/18 0155 Ondansetron (Ondansetron Odt) 8 Mg Tab.rapdis, 8 MG PO Q6H PRN for NAUSEA/VOMITING Prescribed by: ALIYAH ORO on 03/26/211909 Sulfamethoxazole/Trimethoprim (Bactrim Ds Tablet) 1 Each Tablet, 1 EACH PO BID Prescribed by: ALIYAH ORO on 11/30/182003 Sulfamethoxazole/Trimethoprim (Bactrim Ds Tablet) 1 Each Tablet, 1 EACH PO BID Prescribed by: AFRICA SOLO on 01/25/212028 Review of Systems Review of Systems Constitutional: no symptoms reported Eyes: Denies Blurred Vision, Denies Inflammation, Denies Pain, Denies Vision Changes; Other (itching ) Ears: Other (blistering on right ear ) Nose: no symptoms reported Mouth: no symptoms reported Throat: no symptoms reported Respiratory: no symptoms reported Cardiovascular: no symptoms reported Gastrointestinal: no symptoms reported Musculoskeletal: no symptoms reported Skin: see HPI Neurological: No Symptoms Reported Hematologic/Lymphatic: No Symptoms Reported Immunological/Allergic: no symptoms reported Past Laqaaog-Wsylvg-Rruylu Hx Patient Social History Tobacco Use?: No Use of E-Cig and/or Vaping dev: Yes E-Cig or Vaping type used: Nicotine Substance use?: No Alcohol Use?: Yes Alcohol type: Wine Alcohol Frequency: Rarely Immunizations Up To Date Tetanus Booster (TDap): Unknown PED Vaccines UTD: Yes Influenza Vaccine Up-to-Date: No; Not Current First/Initial COVID19 Vaccinat: 08/27 Second COVID19 Vaccination Simon: 09/26 COVID19 Vaccine Knapsack Sprayer: LOBO Seasonal Allergies Seasonal Allergies: No Past Medical History Surgery/Hospitalization HX: asthma, anxiety 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4; EGD) Cardiac, Open Heart Surgery Respiratory: No Cardiac: Yes (OPEN HEART SURGERY AT AGE 4 TO REPAIR HOLES IN HEART ; RBBB) Congenital Heart Disease Neurological: Yes Headaches /Migraines Female Reproductive Disorders: Menstrual Problems Genitourinary: No Gastrointestinal: Yes Gastroesophageal Reflux Musculoskeletal: No Endocrine: Yes ( MORBID OBESITY) HEENT: No Cancer: No Psychosocial: Yes (PANIC ATTACKS) Anxiety Integumentary: No Blood Disorders: No Physical Exam Vital Signs Vital Signs - First Documented 05/30/21 16:20 Temp 37.4 Pulse 80 Resp 18 B/P (MAP) 121/78 (92) Pulse Ox 98 O2 Delivery Room Air Height, Weight, BMI Height: 5'3.00" Weight: 297lbs. oz. 134.375757vj; 49.00 BMI Method:Stated Progress/Results/Core Measures Results/Orders My Orders Orders - ASHLEE MONTILLA APRN Diphenhydramine Injection (Benadryl Inje (05/30/21 17:00) Dexamethasone Injection (Decadron Inje (05/30/21 17:00) Medications Given in ED Current Medications Medications Dose Ordered Sig/Emmanuel Route Start Time Stop Time Status Last Admin Dose Admin Dexamethasone Sodium Phosphate 10 mg ONCE ONCE IM 05/30/21 17:00 05/30/21 17:01 DC 05/30/21 17:14 10 MG Diphenhydramine HCl 50 mg ONCE ONCE IM 05/30/21 17:00 05/30/21 17:01 DC 05/30/21 17:13 50 MG Vital Signs/I&O 05/30/21 05/30/21 16:20 18:38 Temp 37.4 37.4 Pulse 80 81 Resp 18 18 B/P (MAP) 121/78 (92) 118/74 Pulse Ox 98 100 O2 Delivery Room Air Room Air Blood Pressure Mean: 92 Departure Impression Primary Impression: Allergic reaction to chemical substance Disposition: HOME, SELF-CARE Condition: Stable Departure-Patient Inst. Decision time for Depature: 17:08 Referrals: NO,LOCAL PHYSICIAN (PCP/Family) Primary Care Physician Patient Instructions: Allergic Reaction ED Add. Discharge Instructions: Plan: 1. Avoid dying her hair at home as your reactions will continue to worsen the mo re you exposure skin.You can also use a cool washcloth for comfort. 2. You can continue to take Benadryl every 4 hours as directed per package for itching, discomfort. 3. Take steroids daily as directed to help with swelling, hives, itching. Take with food. 4. Follow-up with Dr. Tate if your symptoms persist. 5. Return for any new, concerning, worsening symptoms. All discharge instructions reviewed with patient and/or family. Voiced understanding. Scripts Methylprednisolone (Methylprednisolone Dose Pack) 4 Mg Tablet 4 MG PO UD for 6 Days, #21 TAB 0 Refills FOLLOW DOSE PACK INSTRUCTIONS Prov: ASHLEE MONTILLA INSTRUMENT MAKER 05/30/21 ASHLEE MONTILLA INSTRUMENT MAKER May 30, 2021 16:59
[2021-05-30] MEDS ORDERED: diphenhydrAMINE 50 MG/ML INJ (BENADRYL) IM ONE (17:00)
[2021-05-30] MEDS ORDERED: METH4TAB11 PO (17:13)
[2021-05-30 18:38] VITALS: BP 118/74
== END 2021-05-30 18:39 | disposition home or self-care (01) ==
LOC: EDUNIT# 16:17 → ER 16:19
DX: T78.49XA Other allergy, initial encounter (principal); J45.909 Unspecified asthma, uncomplicated; E66.01 Morbid (severe) obesity due to excess calories; Z68.42 Body mass index [BMI] 45.0-49.9, adult
CPT/HCPCS: 99284

== ENCOUNTER 2021-06-20 22:35 | Emergency (ER) | payer MEDICAID ==
[~2021-06-20] VITALS: Ht 160 cm; Wt 137.0 kg
[~2021-06-20 22:35] MED LIST changes: +METH4TAB11 PO
[2021-06-21] MEDS ORDERED: CYCL10TA25 PO (00:40)
[2021-06-21] MEDS ORDERED: NAPR500T8 PO (00:40)
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
[2021-06-21 02:20] VITALS: BP 129/85
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
== END 2021-06-21 02:21 | disposition home or self-care (01) ==
LOC: EDUNIT# 22:35 → ER 22:37
DX: S02.2XXA Fracture of nasal bones, initial encounter for closed fracture (principal); S16.1XXA Strain of muscle, fascia and tendon at neck level, initial encounter; S20.219A Contusion of unspecified front wall of thorax, initial encounter; M25.512 Pain in left shoulder; M25.561 Pain in right knee; M25.562 Pain in left knee; G43.909 Migraine, unspecified, not intractable, without status migrainosus; J45.909 Unspecified asthma, uncomplicated; E66.01 Morbid (severe) obesity due to excess calories; F17.210 Nicotine dependence, cigarettes, uncomplicated; F17.290 Nicotine dependence, other tobacco product, uncomplicated; Z68.43 Body mass index [BMI] 50.0-59.9, adult; Z79.52 Long term (current) use of systemic steroids; V59.50XA Passenger in pick-up truck or van injured in collision with unspecified motor vehicles in traffic accident, initial encounter; Y92.410 Unspecified street and highway as the place of occurrence of the external cause
CPT/HCPCS: 70450; 70486; 71045; 71250; 72125; 72128; 72131; 73030; 73562; 74176; 84703; 93041

== ENCOUNTER 2021-06-22 22:34 | Emergency (ER) | payer MEDICAID ==
[~2021-06-22] VITALS: Ht 160 cm; Wt 137.4 kg
[~2021-06-22 22:34] MED LIST changes: +CYCL10TA25 PO; +NAPR500T8 PO
[2021-06-22 22:35] VITALS: BP 136/80
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
== END 2021-06-22 23:27 | disposition home or self-care (01) ==
LOC: EDUNIT# 22:34 → ER 22:35
DX: J34.89 Other specified disorders of nose and nasal sinuses (principal); K52.9 Noninfective gastroenteritis and colitis, unspecified; J45.909 Unspecified asthma, uncomplicated
CPT/HCPCS: 99283

== ENCOUNTER 2021-08-23 15:17 | Emergency (ER) | payer MEDICAID ==
[~2021-08-23] VITALS: Ht 161 cm; Wt 137.4 kg
[2021-08-23] MEDS ORDERED: LACTATED RINGERS 1,000 ML IV ONE (16:00)
[2021-08-23 16:04] LABS: BASOPHILS # (AUTO) 0.1 10^3/uL (0.0-0.1); BASOPHILS % (AUTO) 1 % (0-10); EOSINOPHILS # (AUTO) 0.1 10^3/uL (0.0-0.3); EOSINOPHILS % (AUTO) 1 % (0-10); HEMATOCRIT 42 % (35-52); HEMOGLOBIN 13.2 g/dL (11.5-16.0); LYMPHOCYTES # (AUTO) 2.7 10^3/uL (1.0-4.0); LYMPHOCYTES % (AUTO) 24 % (12-44); MEAN CORPUSCULAR HEMOGLOBIN 25 pg (25-34); MEAN CORPUSCULAR HGB CONC 31 g/dL (32-36); MEAN CORPUSCULAR VOLUME 80 fL (80-99); MEAN PLATELET VOLUME 9.6 fL (9.0-12.2); MONOCYTES # (AUTO) 0.7 10^3/uL (0.0-1.0); MONOCYTES % (AUTO) 7 % (0-12); NEUTROPHILS # (AUTO) 7.4 10^3/uL (1.8-7.8); NEUTROPHILS % (AUTO) 67 % (42-75); PLATELET COUNT 502 10^3/uL (130-400); WHITE BLOOD COUNT 11.1 10^3/uL (4.3-11.0)
--- NOTE | 2021-08-23 16:06 | ED GU-Female ---
General Chief Complaint: Abdominal/GI Problems Stated Complaint: HX OVARIAN CYST/PELVIC PAIN Nursing Triage Note: PT STATES HAVING LOW ABD/PELVIC PAIN, VOMITING AND HARD TO EAT STARTED 3 DAYS AGO BUT PELVIC PAIN STARTED TODAY. HX OF OVARIAN CYST ON LT SIDE. HARD TO URINATE AND HAVING DISCHARGE AND FOUL ODOR FOR 2 WEEKS. (JESSE REYNOSO MED STUDENT) History of Present Illness Date Seen by Provider: Aug 23, 2021 Time Seen by Provider: 15:35 Initial Comments Digna is a 26 y/o F with PMHx of ovarian cyst and recurrent UTIs and yeast infections who presents for pelvic pain onset today. Patient states she was seen for foul smelling vaginal discharge 2 weeks ago by [facility] where she was told all her results were negative for UTI. Patient subsequently used fragrances and douches to manage smell. Symptoms worsened with concurrent vomiting onsetting 3 days ago and severe suprapubic pelvic pain today with decreased urine output, prompting her arrival. She notes symptoms are similar to her previous UTIs though current symptoms are much worse in severity. She also notes a few episodes of nausea, vomiting and diarrhea. Patient took Tylenol 2 hours prior to arrival, unknown dose, with no relief. She denies CP, abdominal pain, fever and being on any abx. LNMP was 1 week ago. (JESSE REYNOSO MED STUDENT) Allergies and Home Medications Allergies Coded Allergies: amoxicillin (Verified Allergy, Unknown, 09/29/18) Patient Home Medication List Home Medication List Reviewed: Yes (ALEKSANDRA POST) Cetirizine HCl (Cetirizine HCl) 10 Mg Tablet, 10 MG PO DAILY Prescribed by: ALIYAH ORO on 03/26/211909 Cyclobenzaprine HCl (Cyclobenzaprine HCl) 10 Mg Tablet, 10 MG PO Q8H PRN for SPASMS Prescribed by: LUANA ANDRADE on 06/21/21 004 Methylprednisolone (Methylprednisolone Dose Pack) 4 Mg Tablet, 4 MG PO UD Prescribed by: ASHLEE MONTILLA on 05/30/21 171 Naproxen (Naproxen) 500 Mg Tablet.dr, 500 MG PO BID Prescribed by: LUANA ANDRADE on 06/21/21 004 Ondansetron (Ondansetron Odt) 4 Mg Tab.rapdis, 4 MG PO Q4H Prescribed by: LUANA ANDRADE on 10/11/18 0155 Ondansetron (Ondansetron Odt) 8 Mg Tab.rapdis, 8 MG PO Q6H PRN for NAUSEA/VOMITING Prescribed by: ALIYAH ORO on 03/26/211909 Sulfamethoxazole/Trimethoprim (Bactrim Ds Tablet) 1 Each Tablet, 1 EACH PO BID Prescribed by: ALIYAH ORO on 11/30/182003 Sulfamethoxazole/Trimethoprim (Bactrim Ds Tablet) 1 Each Tablet, 1 EACH PO BID Prescribed by: AFRICA SOLO on 01/25/212028 Review of Systems Review of Systems Constitutional: No fever, No weakness EENTM: No mouth swelling, No epistaxis Respiratory: No phlegm, No wheezing Cardiovascular: No chest pain, No palpitations Gastrointestinal: No abdominal pain, No constipation; diarrhea, nausea, vomiting Genitourinary: discharge; denies flank pain; pain (pelvic, overlying bladder) Musculoskeletal: No joint pain, No neck pain Skin: No lesions, No lumps Psychiatric/Neurological: Denies Tremors, Denies Weakness (JESSE REYNOSO STUDENT) All Other Systemes Reviewed Negative Unless Noted: Yes (ALEKSANDRA POST) Past [id number]-Toeqfg Hx Patient Social History Tobacco Use?: No Use of E-Cig and/or Vaping dev: Yes E-Cig or Vaping type used: Nicotine Use of E-Cig and/or Vaping Deon: Current Everyday User Substance use?: No Alcohol Use?: Yes Alcohol type: Wine Alcohol Frequency: Once in a while (JESSE REYNOSO STUDENT) Immunizations Up To Date Tetanus Booster (TDap): Unknown PED Vaccines UTD: Yes First/Initial COVID19 Vaccinat: 09/2020 Second COVID19 Vaccination Simon: 10/2020 Third COVID19 Vaccination Date: 09/2020 (JESSE REYNOSO STUDENT) Seasonal Allergies Seasonal Allergies: No (JESSE REYNOSO) Past Medical History Surgery/Hospitalization HX: asthma, anxiety, RBBB, OBESITY, GERD, GUAN, CONGENITAL HEART REPAIR. 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4; EGD) Cardiac, Open Heart Surgery Respiratory: Yes Asthma Cardiac: Yes (OPEN HEART SURGERY AT AGE 4 TO REPAIR HOLES IN HEART ; RBBB) Congenital Heart Disease Neurological: Yes Headaches /Migraines Last Menstrual Period: Aug 17, 2021 Reproductive Disorders: Yes Female Reproductive Disorders: Menstrual Problems Genitourinary: No Gastrointestinal: Yes Gastroesophageal Reflux Musculoskeletal: No Endocrine: Yes ( MORBID OBESITY) HEENT: No (GLASSES) Cancer: No Psychosocial: Yes (PANIC ATTACKS) Anxiety Integumentary: No Blood Disorders: No (JESSE REYNOSO STUDENT) Physical Exam Vital Signs Vital Signs - First Documented 08/23/21 15:26 Temp 37.0 Pulse 93 Resp 20 B/P (MAP) 118/92 (101) Pulse Ox 99 O2 Delivery Room Air (ALEKSANDRA POST) Vital Signs Capillary Refill : Less Than 3 Seconds (JESSE REYNOSO STUDENT) Height, Weight, BMI Height: 5'3.00" Weight: 297lbs. oz. 134.885261vv; 53.00 BMI Method:Stated General Appearance: WD/WN, obese HEENT: PERRL/EOMI, pharynx normal Neck: non-tender, normal inspection Cardiovascular: normal peripheral pulses, regular rate, rhythm Respiratory: chest non-tender, normal breath sounds, no respiratory distress, no accessory muscle use Gastrointestinal: normal bowel sounds, non tender, no pulsatile mass Back: no CVA tenderness, no vertebral tenderness Extremities: no calf tenderness, normal capillary refill Neurologic/Psychiatric: alert, normal mood/affect Skin: normal color, warm/dry (JESSE REYNOSO STUDENT) Gastrointestinal: other (Positive psoas sign on the right side but not on the left. More tender on the right than the last.) (ALEKSANDRA POST) Progress/Results/Core Measures Suspected Sepsis SIRS Temperature: Pulse: 93 Respiratory Rate: 20 Blood Pressure 118 /92 Mean: 101 (JESSE REYNOSO STUDENT) Results/Orders Lab Results Laboratory Tests Test 08/23/21 15:35 08/23/21 15:57 08/23/21 16:30 Range/Units White Blood Count 11.1 H 4.3-11.0 10^3/uL Red Blood Count 5.25 H 3.80-5.11 10^6/uL Hemoglobin 13.2 11.5-16.0 g/dL Hematocrit 42 35-52 % Mean Corpuscular Volume 80 80-99 fL Mean Corpuscular Hemoglobin 25 25-34 pg Mean Corpuscular Hemoglobin Concent 31 L 32-36 g/dL Red Cell Distribution Width 15.6 H 10.0-14.5 % Platelet Count 502 H 130-400 10^3/uL Mean Platelet Volume 9.6 9.0-12.2 fL Immature Granulocyte % (Auto) 0 % Neutrophils (%) (Auto) 67 42-75 % Lymphocytes (%) (Auto) 24 12-44 % Monocytes (%) (Auto) 7 0-12 % Eosinophils (%) (Auto) 1 0-10 % Basophils (%) (Auto) 1 0-10 % Neutrophils # (Auto) 7.4 1.8-7.8 10^3/uL Lymphocytes # (Auto) 2.7 1.0-4.0 10^3/uL Monocytes # (Auto) 0.7 0.0-1.0 10^3/uL Eosinophils # (Auto) 0.1 0.0-0.3 10^3/uL Basophils # (Auto) 0.1 0.0-0.1 10^3/uL Immature Granulocyte # (Auto) 0.0 0.0-0.1 10^3/uL Sodium Level 138 135-145 MMOL/L Potassium Level 4.3 3.6-5.0 MMOL/L Chloride Level 102 98-107 MMOL/L Carbon Dioxide Level 22 21-32 MMOL/L Anion Gap 14 5-14 MMOL/L Blood Urea Nitrogen 8 7-18 MG/DL Creatinine 0.90 0.60-1.30 MG/DL Estimat Glomerular Filtration Rate 92 BUN/Creatinine Ratio 9 Glucose Level 90 70-105 MG/DL Calcium Level 9.4 8.5-10.1 MG/DL Corrected Calcium 9.2 8.5-10.1 MG/DL Total Bilirubin 0.6 0.1-1.0 MG/DL Aspartate Amino Transf (AST/SGOT) 27 5-34 U/L Alanine Aminotransferase (ALT/SGPT) 23 0-55 U/L Alkaline Phosphatase 66 40-136 U/L C-Reactive Protein High Sensitivity 0.39 0.00-0.50 MG/DL Total Protein 7.2 6.4-8.2 GM/DL Albumin 4.2 3.2-4.5 GM/DL Urine Color YELLOW Urine Clarity SL CLOUDY Urine pH 5.5 5-9 Urine Specific [place] 1.020 1.016-1.022 Urine Protein NEGATIVE NEGATIVE Urine Glucose (UA) NEGATIVE NEGATIVE Urine Ketones TRACE H NEGATIVE Urine Nitrite NEGATIVE NEGATIVE Urine Bilirubin NEGATIVE NEGATIVE Urine Urobilinogen 0.2 < = 1.0 MG/DL Urine Leukocyte Esterase NEGATIVE NEGATIVE Urine RBC (Auto) NEGATIVE NEGATIVE Urine RBC 0-2 /HPF Urine WBC RARE /HPF Urine Squamous Epithelial Cells 5-10 /HPF Urine Crystals NONE /LPF Urine Bacteria TRACE /HPF Urine Casts PRESENT /LPF Urine Hyaline Casts 0-2 H /LPF Urine Mucus NEGATIVE /LPF Urine Culture Indicated NO (ALEKSANDRA POST) My Orders Orders - ALEKSANDRA POST Ua Culture If Indicated (08/23/21 15:24) Urine Bedside (08/23/21 15:24) Cbc With Automated Diff (08/23/21 15:56) Comprehensive Metabolic Panel (08/23/21 15:56) Hs C Reactive Protein (08/23/21 15:56) Ed Iv/Invasive Line Start (08/23/21 15:56) Lactated Ringers (Lr 1000 Ml Iv Solution (08/23/21 16:00) Ed Iv/Invasive Line Start (08/23/21 16:05) Ketorolac Injection (Toradol Injection) (08/23/21 16:15) Neisseria Gonorrhea Swab (08/23/21 16:07) Chlamydia Trachomatis Swab (08/23/21 16:07) Wet Prep (08/23/21 16:07) Us Non Ob Pelvis Comp/Transvag (08/23/21 16:05) Azithromycin Tablet (Zithromax Tablet) (08/23/21 18:30) (ALEKSANDRA POST) Medications Given in ED Current Medications Medications Dose Ordered Sig/Emmanuel Route Start Time Stop Time Status Last Admin Dose Admin Ketorolac Tromethamine 30 mg ONCE ONCE IVP 08/23/21 16:15 08/23/21 16:16 DC 08/23/21 17:05 30 MG Lactated Ringer's 1,000 ml @ 0 mls/hr Q0M ONCE IV 08/23/21 16:00 08/23/21 16:01 DC 08/23/21 17:05 1,000 MLS/HR (ALEKSANDRA POTS) Vital Signs/I&O 08/23/21 08/23/21 15:26 17:05 Temp 37.0 37.0 Pulse 93 Resp 20 B/P (MAP) 118/92 (101) Pulse Ox 99 O2 Delivery Room Air (ALEKSANDRA POST) Vital Signs/I&O Capillary Refill : Less Than 3 Seconds (JESSE REYNOSO MED STUDENT) Blood Pressure Mean: 101 Progress Note : Time: 17:07 Progress Note I attest that I saw this patient alongside the medical student and agree with his documented history, physical exam and review of systems except as otherwise noted. Free fluid on the right side where she is most tender. No new cysts and no torsion. Plan to treat her for possible PID. Other possibility would be mittelschmerz however she is only a week from her last menstrual cycle. (ALEKSANDRA POST) Diagnostic Imaging Diagonstic Imaging: Ultrasound Plain Films/CT/US/NM/MRI: pelvis Comments 5 cm known cyst on the left ovary no cyst on the right. No torsion bilateral. Good blood flow. There is a little bit of free fluid seen on the right side. Reviewed: Reviewed by Me (ALEKSANDRA POST) Departure Impression Primary Impression: PID (acute pelvic inflammatory disease) Disposition: 01 HOME, SELF-CARE Condition: Stable Departure-Patient Inst. Decision time for Depature: 18:15 (ALEKSANDRA POST) Referrals: SHELBY SANCHEZ MD NO,LOCAL PHYSICIAN (PCP) Primary Care Physician Patient Instructions: Pelvic Inflammatory Disease (DC) Add. Discharge Instructions: Drink plenty of fluids and take doxycycline 1 capsule twice a day for the next 7 days. Naproxen 500 mg twice a day for pain. Tylenol 1000 mg every 8 hours as needed for pain. Warm compresses on the outside of the abdomen can be helpful for pain. Return to the ER for intractable pain, fever or other worrisome symptoms. You may also follow-up with Dr. Sanchez, gynecology by calling for an appointment this week. All discharge instructions reviewed with patient and/or family. Voiced understanding. Scripts Doxycycline Hyclate (Doxycycline Hyclate) 100 Mg Capsule 100 MG PO BID for 10 Days, #20 CAP 0 Refills Prov: ALEKSANDRA POST 08/23/21 Work/School Note: Work Release Form Date Seen in the Emergency Department: Aug 23, 2021 Return to Work: Aug 26, 2021 Restrictions: No Restrictions Copy Copies To 1: SHELBY SANCHEZ MD, MATTHEW MED STUDENT Aug 23, 2021 16:06 ALEKSANDRA POST Aug 23, 2021 17:09
[2021-08-23 16:07] LABS: ALBUMIN 4.2 GM/DL (3.2-4.5); POTASSIUM 4.3 MMOL/L (3.6-5.0)
[2021-08-23 16:08] LABS: CALCIUM 9.4 MG/DL (8.5-10.1)
[2021-08-23 16:09] LABS: BILIRUBIN,URINE NEGATIVE (NEGATIVE); CLARITY,URINE SL CLOUDY; COLOR,URINE YELLOW; GLUCOSE, URINE (UA) NEGATIVE (NEGATIVE); KETONES,URINE TRACE (NEGATIVE); LEUKOCYTE ESTERASE ,URINE NEGATIVE (NEGATIVE); NITRITE,URINE NEGATIVE (NEGATIVE); PH,URINE 5.5 (5-9); PROTEIN,URINE NEGATIVE (NEGATIVE)
[2021-08-23 16:09] LABS: TOTAL PROTEIN 7.2 GM/DL (6.4-8.2)
[2021-08-23 16:11] LABS: BILIRUBIN,TOTAL 0.6 MG/DL (0.1-1.0)
[2021-08-23 16:13] LABS: CREATININE SERUM 0.9 MG/DL (0.60-1.30)
[2021-08-23] MEDS ORDERED: KETOROLAC 30 MG/ML VIAL IVP ONE (16:15)
[2021-08-23 16:19] LABS: BACTERIA,URINE TRACE /HPF; HYALINE CASTS, URINE 0-2 /LPF; RBC,URINE 0-2 /HPF; WBC,URINE RARE /HPF
--- NOTE | 2021-08-23 17:29 | Diagnostic Imaging Report ---
PROCEDURE: Pelvic complete, transabdominal and transvaginal sonogram. Limited pelvic doppler. TECHNIQUE: Multiple real-time grayscale images were obtained of the pelvis in various projections transabdominally and transvaginally. Limited pelvic duplex images were obtained. HISTORY: Pelvic pain. COMPARISON: None available. FINDINGS: The uterus is anteverted and is normal in size. It measures 6.5 x 3.3 x 4.3 cm. The endometrial stripe measures 5 mm in width. The right ovary is normal. There is a 5.1 x 4.3 x 5.7 cm left adnexal cyst. The right ovary measures 3.6 x 2.1 x 2.8 cm and the left ovary measures 2.7 x 1.6 x 2.9 cm. Duplex images reveal normal arterial inflow to both ovaries. There is a small amount of free pelvic fluid. IMPRESSION: 1. Large left adnexal cyst. Follow-up in 6-8 weeks is recommended to ensure appropriate resolution. 2. Normal vascular flow to both ovaries. Dictated by: Dictated on workstation # [id number]
[2021-08-23] MEDS ORDERED: DOXY100C5 PO (18:19)
[2021-08-23] MEDS ORDERED: AZITHROMYCIN 250 MG TAB (ZITHROMAX) PO ONE (18:30)
[2021-08-23] MEDS ORDERED: cefTRIAXone 1 GM PRE-MIX 50 ML IV ONE (18:30)
[2021-08-23 18:55] VITALS: BP 118/92
== END 2021-08-23 18:54 | disposition home or self-care (01) ==
LOC: EDUNIT# 15:17 → ER 15:18
DX: N73.9 Female pelvic inflammatory disease, unspecified (principal); E66.01 Morbid (severe) obesity due to excess calories; F17.290 Nicotine dependence, other tobacco product, uncomplicated; Z68.43 Body mass index [BMI] 50.0-59.9, adult
CPT/HCPCS: 36415; 76830; 76856; 80053; 81000; 84703; 85025; 86141; 87210; 87491; 87591

== ENCOUNTER 2021-09-13 14:41 | Emergency (ER) | payer MEDICAID ==
[~2021-09-13] VITALS: Ht 162.5 cm; Wt 137.4 kg
[~2021-09-13 14:41] MED LIST changes: +DOXY100C5 PO
--- NOTE | 2021-09-13 15:07 | ED GU-Female ---
General Chief Complaint: Abdominal/GI Problems Stated Complaint: PELVIC PAIN Nursing Triage Note: C/O RECURRING PELVIC PAIN. WAS STARTED ON ANTIBIOTIC 2 WEEKS AGO FINSIHED FEELING BETTER NOW YESTERDAY BACK TO HAVING PAIN. Source: patient History of Present Illness Date Seen by Provider: September 13, 2021 Time Seen by Provider: 14:50 Initial Comments PT ARRIVES VIA POV FROM HOME C/O PELVIC PAIN SINCE YESTERDAY--POINTS TO SUPRAPUBIC AREA AREA OF PAIN HAS HAD YELLOW TO WHITE VAGINAL DISCHARGE SINCE YESTERDAY NO URINARY SYMPTOMS NO FEVER NO NAUSEA/VOMITING HAD NORMAL BM TODAY LMP 09/06/21. NORMAL. NO CONTROL HAS HISTORY OF UTI'S AND OVARIAN CYSTS WAS SEEN HERE 08/23/21 FOR THIS SAME COMPLAINT HAD LAB,UA,PELVIC EXAM AND PELVIC ULTRASOUND WAS DX WITH PID AND GIVEN RX FOR DOXYCYCLINE. SHE HAD REPORTED AT THAT TIME THAT SHE HAD BEEN SEEN AT [facility] 2 WEEKS PRIOR TO THAT FOR PELVIC PAIN AND VAGINAL DISCHARGE, WAS TOLD SHE DID NOT HAVE UTI AND NO OTHER TESTS WERE DONE AND NO RX WAS GIVEN PT STATES THAT HER SYMPTOMS GOT BETTER WITH THE ANTIBIOTICS, THEN RETURNED YESTERDAY STATES SHE CAN'T WALK OR MOVE WITHOUT PAIN. HAS NOT TAKEN ANYTHING FOR PAIN PT HAS HAD MALE PARTNERS, AND LAST TIME SHE HAD INTERCOURSE WITH A MALE WAS 2 YEARS AGO.\\ SINCE THEN HAS HAD FEMALE PARTNERS. Allergies and Home Medications Allergies Coded Allergies: amoxicillin (Verified Allergy, Unknown, 09/29/18) Patient Home Medication List Cetirizine HCl (Cetirizine HCl) 10 Mg Tablet, 10 MG PO DAILY Prescribed by: ALIYAH ORO on 03/26/211909 Cyclobenzaprine HCl (Cyclobenzaprine HCl) 10 Mg Tablet, 10 MG PO Q8H PRN for SPASMS Prescribed by: LUANA ANDRADE on 06/21/2139 Doxycycline Hyclate (Doxycycline Hyclate) 100 Mg Capsule, 100 MG PO BID Prescribed by: ALEKSANDRA POST on 08/23/211818 Methylprednisolone (Methylprednisolone Dose Pack) 4 Mg Tablet, 4 MG PO UD Prescribed by: ASHLEE MONTILLA on 05/30/21 171 Naproxen (Naproxen) 500 Mg Tablet.dr, 500 MG PO BID Prescribed by: LUANA ANDRADE on 06/21/2139 Ondansetron (Ondansetron Odt) 4 Mg Tab.rapdis, 4 MG PO Q4H Prescribed by: LUANA ANDRADE on 10/11/18 015 Ondansetron (Ondansetron Odt) 8 Mg Tab.rapdis, 8 MG PO Q6H PRN for NAUSEA/VOMITING Prescribed by: ALIYAH ORO on 03/26/211909 Sulfamethoxazole/Trimethoprim (Bactrim Ds Tablet) 1 Each Tablet, 1 EACH PO BID Prescribed by: ALIYAH ORO on 11/30/182003 Sulfamethoxazole/Trimethoprim (Bactrim Ds Tablet) 1 Each Tablet, 1 EACH PO BID Prescribed by: AFRICA SOLO on 01/25/212028 Review of Systems Review of Systems Constitutional: no symptoms reported Respiratory: no symptoms reported Cardiovascular: no symptoms reported Gastrointestinal: see HPI, abdominal pain; No diarrhea, No nausea, No vomiting Genitourinary: see HPI, discharge : No LMP: September 06, 2021 Musculoskeletal: no symptoms reported Skin: no symptoms reported Psychiatric/Neurological: No Symptoms Reported Endocrine: No Symptoms Reported Hematologic/Lymphatic: No Symptoms Reported Past Geoteyk-Ucckgz-Ugxbyz Hx Immunizations Up To Date Tetanus Booster (TDap): Unknown PED Vaccines UTD: Yes First/Initial COVID19 Vaccinat: 09/2020 Second COVID19 Vaccination Simon: 10/2020 Third COVID19 Vaccination Date: 09/2020 Seasonal Allergies Seasonal Allergies: No Past Medical History Surgery/Hospitalization HX: asthma, anxiety, RBBB, OBESITY, GERD, GUAN, CONGENITAL HEART REPAIR. 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; EGD) Cardiac, Open Heart Surgery Respiratory: Yes Asthma Cardiac: Yes (OPEN HEART SURGERY AT AGE 4 TO REPAIR HOLES IN HEART-ASD & VSD; RBBB) Congenital Heart Disease Neurological: Yes Headaches /Migraines Reproductive Disorders: Yes Female Reproductive Disorders: Menstrual Problems, Ovarian Cyst Genitourinary: Yes Bladder Infection Gastrointestinal: Yes Gastroesophageal Reflux Musculoskeletal: No Endocrine: Yes ( MORBID OBESITY) HEENT: No (GLASSES) Cancer: No Psychosocial: Yes (PANIC ATTACKS) Anxiety Integumentary: No Blood Disorders: No Physical Exam Vital Signs Vital Signs - First Documented 09/13/21 14:50 Temp 37.2 Pulse 95 Resp 18 B/P (MAP) 139/79 (99) Pulse Ox 96 Capillary Refill : Height, Weight, BMI Height: 5'3.00" Weight: 297lbs. oz. 134.314045wn; 52.00 BMI Method:Stated General Appearance: WD/WN, no apparent distress, obese, other (WALKS UPRIGHT AND MOVES WITHOUT DIFFICULTY. SMILING, SITTING UP AND TEXTING/PLAYING ON PHONE. DOES NOT APPEAR ILL OR TO BE IN ANY DISCOMFORT OR DISTRESS. ) Neck: normal inspection Cardiovascular: regular rate, rhythm, no murmur Respiratory: normal breath sounds, no respiratory distress, no accessory muscle use Gastrointestinal: soft, tenderness (SUPRAPUBIC AND ALL ACROSS LOWER ABDOMEN) Pelvic: normal external exam, discharge, tender w/ cervical motion, tender adnexa, tender uterus, other (SCANT AMOUNT OF LIGHT YELLOW DISCHARGE. CERVIX INFLAMED AND VERY FRIABLE. + CERVICAL MOTION TENDERNESS. DIFFUSE UTERINE AND BILATERAL ADNEXAL TENDERNESS--MOST TENDER OVER LEFT ADNEXA. NO OBVIOUS MASSES) Back: no CVA tenderness Extremities: normal inspection Neurologic/Psychiatric: no motor/sensory deficits, alert, normal mood/affect, oriented x 3 Skin: normal color Progress/Results/Core Measures Suspected Sepsis SIRS Temperature: Pulse: 95 Respiratory Rate: 18 Laboratory Tests 09/13/21 15:00: White Blood Count 8.5 Blood Pressure 139 /79 Mean: 99 Laboratory Tests 09/13/21 15:00: Creatinine 0.76, Platelet Count 434H, Total Bilirubin 0.5 Results/Orders Lab Results Laboratory Tests Test 09/13/21 14:55 09/13/21 15:00 09/13/21 15:30 Range/Units Urine Color YELLOW Urine Clarity CLEAR Urine pH 7.0 5-9 Urine Specific [place] 1.015 L 1.016-1.022 Urine Protein NEGATIVE NEGATIVE Urine Glucose (UA) NEGATIVE NEGATIVE Urine Ketones NEGATIVE NEGATIVE Urine Nitrite NEGATIVE NEGATIVE Urine Bilirubin NEGATIVE NEGATIVE Urine Urobilinogen 0.2 < = 1.0 MG/DL Urine Leukocyte Esterase NEGATIVE NEGATIVE Urine RBC (Auto) NEGATIVE NEGATIVE Urine RBC NONE /HPF Urine WBC NONE /HPF Urine Squamous Epithelial Cells 2-5 /HPF Urine Crystals NONE /LPF Urine Bacteria TRACE /HPF Urine Casts NONE /LPF Urine Mucus NEGATIVE /LPF Urine Culture Indicated NO Urine Test NEGATIVE NEGATIVE White Blood Count 8.5 4.3-11.0 10^3/uL Red Blood Count 4.89 3.80-5.11 10^6/uL Hemoglobin 12.7 11.5-16.0 g/dL Hematocrit 40 35-52 % Mean Corpuscular Volume 81 80-99 fL Mean Corpuscular Hemoglobin 26 25-34 pg Mean Corpuscular Hemoglobin Concent 32 32-36 g/dL Red Cell Distribution Width 15.2 H 10.0-14.5 % Platelet Count 434 H 130-400 10^3/uL Mean Platelet Volume 9.3 9.0-12.2 fL Immature Granulocyte % (Auto) 0 % Neutrophils (%) (Auto) 69 42-75 % Lymphocytes (%) (Auto) 23 12-44 % Monocytes (%) (Auto) 6 0-12 % Eosinophils (%) (Auto) 2 0-10 % Basophils (%) (Auto) 1 0-10 % Neutrophils # (Auto) 5.8 1.8-7.8 10^3/uL Lymphocytes # (Auto) 1.9 1.0-4.0 10^3/uL Monocytes # (Auto) 0.5 0.0-1.0 10^3/uL Eosinophils # (Auto) 0.1 0.0-0.3 10^3/uL Basophils # (Auto) 0.1 0.0-0.1 10^3/uL Immature Granulocyte # (Auto) 0.0 0.0-0.1 10^3/uL Erythrocyte Sedimentation Rate 20 0-20 MM/HR Sodium Level 140 135-145 MMOL/L Potassium Level 4.3 3.6-5.0 MMOL/L Chloride Level 105 98-107 MMOL/L Carbon Dioxide Level 23 21-32 MMOL/L Anion Gap 12 5-14 MMOL/L Blood Urea Nitrogen 10 7-18 MG/DL Creatinine 0.76 0.60-1.30 MG/DL Estimat Glomerular Filtration Rate 112 BUN/Creatinine Ratio 13 Glucose Level 105 70-105 MG/DL Calcium Level 9.2 8.5-10.1 MG/DL Corrected Calcium 9.3 8.5-10.1 MG/DL Total Bilirubin 0.5 0.1-1.0 MG/DL Aspartate Amino Transf (AST/SGOT) 22 5-34 U/L Alanine Aminotransferase (ALT/SGPT) 18 0-55 U/L Alkaline Phosphatase 62 40-136 U/L C-Reactive Protein High Sensitivity 0.30 0.00-0.50 MG/DL Total Protein 6.9 6.4-8.2 GM/DL Albumin 3.9 3.2-4.5 GM/DL Micro Results Microbiology 09/13/21 Genital Culture, Resulted Pending 09/13/21 CEDRIC Preparation - Final, Resulted 09/13/21 Wet Prep - Final, Resulted My Orders Orders - LUANA ANDRADE DO Urine Bedside (09/13/21 14:52) Ua Culture If Indicated (09/13/21 14:52) Ed Iv/Invasive Line Start (09/13/21 14:53) Cbc With Automated Diff (09/13/21 14:53) Comprehensive Metabolic Panel (09/13/21 14:53) Hs C Reactive Protein (09/13/21 14:53) Erythrocyte Sedimentation Rate (09/13/21 14:53) Ct Abd/Pelv W (Appendicitis) (09/13/21 15:08) Neisseria Gonorrhea Swab (09/13/21 15:08) Chlam Dna Probe (09/13/21 15:08) Genital Culture (09/13/21 15:08) Wet Prep (09/13/21 15:08) Cedric Prep (09/13/21 15:08) Hcg,Qualitative Urine (09/13/21 15:33) Iohexol Injection (Omnipaque 350 Mg/Ml 1 (09/13/21 15:45) Ns (Ivpb) (Sodium Chloride 0.9% Ivpb Bag (09/13/21 15:45) Ceftriaxone 1 Gm Pre-Mix (Rocephin 1 Gm (09/13/21 15:45) Azithromycin Tablet (Zithromax Tablet) (09/13/21 15:45) Us Pelvic (Non Ob)23083 (09/13/21 16:22) Ketorolac Injection (Toradol Injection) (09/13/21 16:30) Medications Given in ED Current Medications Medications Dose Ordered Sig/Emmanuel Route Start Time Stop Time Status Last Admin Dose Admin Azithromycin 1,000 mg ONCE ONCE PO 09/13/21 15:45 09/13/21 15:46 DC 09/13/21 15:53 1,000 MG Ceftriaxone Sodium/Dextrose 50 ml @ 100 mls/hr ONCE ONCE IV 09/13/21 15:45 09/13/21 16:14 DC 09/13/21 15:53 100 MLS/HR Iohexol 100 ml ONCE ONCE IV 09/13/21 15:45 09/13/21 15:46 DC 09/13/21 16:05 100 ML Ketorolac Tromethamine 30 mg ONCE ONCE IVP 09/13/21 16:30 09/13/21 16:31 DC 09/13/21 16:29 30 MG Sodium Chloride 100 ml ONCE ONCE IV 09/13/21 15:45 09/13/21 15:46 DC 09/13/21 16:05 80 ML Vital Signs/I&O 09/13/21 14:50 Temp 37.2 Pulse 95 Resp 18 B/P (MAP) 139/79 (99) Pulse Ox 96 Capillary Refill : Blood Pressure Mean: [address] ABDOMEN/PELVIS--PER RADIOLOGIST REPORT AT 1621 COMPARISON: 06/20/2021. FINDINGS: Lung bases: The lung bases are clear. Solid organs: The liver is normal without focal lesion. The gallbladder is normal. There is no biliary ductal dilation. Pancreas is normal. Spleen is normal. Adrenal glands are normal. The kidneys are normal without hydronephrosis. Bowel: The stomach and small bowel are normal without obstruction. There is wall thickening of the transverse and descending colon. The appendix is normal without findings of acute appendicitis. Peritoneum: There is no intraperitoneal free fluid or free air. No suspicious lymphadenopathy. Vasculature: Normal without aneurysm. Musculoskeletal: No suspicious osseous lesion or compression fracture. Pelvis: There is a 6.9 cm left adnexal cyst. The uterus is unremarkable. The urinary bladder is normal. IMPRESSION: 1. Mild wall thickening of the transverse and descending colon which can be seen with underdistention but could also be seen with infectious or inflammatory colitis in the appropriate clinical setting. 2. A 6.9 cm left adnexal cyst. This was present on a prior ultrasound of 08/23/2021. Recommend continued ultrasound follow-up, as previously recommended. Reviewed: Reviewed by Me Departure Impression Primary Impression: PID (acute pelvic inflammatory disease) Additional Impression: Left ovarian cyst Disposition: 01 HOME, SELF-CARE Condition: Stable Departure-Patient Inst. Decision time for Depature: 17:21 Referrals: MADHU SARAVIA KARI E MD HIGGINBOTHAM, DENNIS G MD TORCHIA, DAVID M PA (PCP) Primary Care Physician Patient Instructions: Ovarian Cyst ED, Pelvic Inflammatory Disease (DC) Add. Discharge Instructions: NOTHING IN VAGINA--NO TAMPONS, DOUCHING OR INTERCOURSE FOLLOW UP WITH [facility] PHYSICIAN OF CHOICE THIS WEEK FOR FURTHER CARE--CALL IN THE MORNING TO SCHEDULE AN APPOINTMENT--DR. GUIDO, DR. SARAVIA, DR. STEELE All discharge instructions reviewed with patient and/or family. Voiced understanding. Scripts Naproxen (Naproxen) 500 Mg Tablet.dr 500 MG PO BID, #20 TAB Prov: LUANA ANDRADE DO 09/13/21 Ondansetron (Ondansetron Odt) 4 Mg Tab.rapdis 4 MG PO Q4H for Nausea/Vomiting, #20 TAB Prov: LUANA ANDRADE DO 09/13/21 Metronidazole (Metronidazole) 500 Mg Tablet 500 MG PO QID, #40 TAB 0 Refills Prov: LUANA ANDRADE DO 09/13/21 Doxycycline Hyclate (Doxycycline Hyclate) 100 Mg Tablet 100 MG PO BID, #20 TAB 0 Refills Prov: LUANA ANDARDE DO 09/13/21 LUANA ANDRADE DO September 13, 2021 15:07
[2021-09-13 15:12] LABS: BASOPHILS # (AUTO) 0.1 10^3/uL (0.0-0.1); BASOPHILS % (AUTO) 1 % (0-10); EOSINOPHILS # (AUTO) 0.1 10^3/uL (0.0-0.3); EOSINOPHILS % (AUTO) 2 % (0-10); HEMATOCRIT 40 % (35-52); HEMOGLOBIN 12.7 g/dL (11.5-16.0); LYMPHOCYTES # (AUTO) 1.9 10^3/uL (1.0-4.0); LYMPHOCYTES % (AUTO) 23 % (12-44); MEAN CORPUSCULAR HEMOGLOBIN 26 pg (25-34); MEAN CORPUSCULAR HGB CONC 32 g/dL (32-36); MEAN CORPUSCULAR VOLUME 81 fL (80-99); MEAN PLATELET VOLUME 9.3 fL (9.0-12.2); MONOCYTES # (AUTO) 0.5 10^3/uL (0.0-1.0); MONOCYTES % (AUTO) 6 % (0-12); NEUTROPHILS # (AUTO) 5.8 10^3/uL (1.8-7.8); NEUTROPHILS % (AUTO) 69 % (42-75); PLATELET COUNT 434 10^3/uL (130-400); WHITE BLOOD COUNT 8.5 10^3/uL (4.3-11.0)
[2021-09-13 15:13] LABS: BILIRUBIN,URINE NEGATIVE (NEGATIVE); CLARITY,URINE CLEAR; COLOR,URINE YELLOW; GLUCOSE, URINE (UA) NEGATIVE (NEGATIVE); KETONES,URINE NEGATIVE (NEGATIVE); LEUKOCYTE ESTERASE ,URINE NEGATIVE (NEGATIVE); NITRITE,URINE NEGATIVE (NEGATIVE); PROTEIN,URINE NEGATIVE (NEGATIVE)
[2021-09-13 15:22] LABS: ALBUMIN 3.9 GM/DL (3.2-4.5); POTASSIUM 4.3 MMOL/L (3.6-5.0)
[2021-09-13 15:23] LABS: BACTERIA,URINE TRACE /HPF
[2021-09-13 15:23] LABS: CALCIUM 9.2 MG/DL (8.5-10.1)
[2021-09-13 15:25] LABS: TOTAL PROTEIN 6.9 GM/DL (6.4-8.2)
[2021-09-13 15:26] LABS: BILIRUBIN,TOTAL 0.5 MG/DL (0.1-1.0)
[2021-09-13 15:28] LABS: CREATININE SERUM 0.76 MG/DL (0.60-1.30)
[2021-09-13 15:40] LABS: ERYTHROCYTE SEDIMENTATION RATE 20 MM/HR (0-20)
[2021-09-13] MEDS ORDERED: NS 100 ML (IVPB) BAG IV ONE (15:45)
[2021-09-13] MEDS ORDERED: cefTRIAXone 1 GM PRE-MIX 50 ML IV ONE (15:45)
[2021-09-13] MEDS ORDERED: AZITHROMYCIN 250 MG TAB (ZITHROMAX) PO ONE (15:45)
[2021-09-13] MEDS ORDERED: IOHEXOL 350 MG/ML 100 ML (OMNIPAQUE 350) VIAL IV ONE (15:45)
--- NOTE | 2021-09-13 16:18 | Diagnostic Imaging Report ---
EXAMINATION: CT abdomen and pelvis with intravenous contrast. TECHNIQUE: Multiple contiguous axial images were obtained through the abdomen and pelvis after the uneventful administration of intravenous contrast. All CT scans use one or more of the following dose optimizing techniques: automated exposure control, MA and/or KvP adjustment based on patient size and exam type or iterative reconstruction. HISTORY: RLQ pain. COMPARISON: 06/20/2021. FINDINGS: Lung bases: The lung bases are clear. Solid organs: The liver is normal without focal lesion. The gallbladder is normal. There is no biliary ductal dilation. Pancreas is normal. Spleen is normal. Adrenal glands are normal. The kidneys are normal without hydronephrosis. Bowel: The stomach and small bowel are normal without obstruction. There is wall thickening of the transverse and descending colon. The appendix is normal without findings of acute appendicitis. Peritoneum: There is no intraperitoneal free fluid or free air. No suspicious lymphadenopathy. Vasculature: Normal without aneurysm. Musculoskeletal: No suspicious osseous lesion or compression fracture. Pelvis: There is a 6.9 cm left adnexal cyst. The uterus is unremarkable. The urinary bladder is normal. IMPRESSION: 1. Mild wall thickening of the transverse and descending colon which can be seen with underdistention but could also be seen with infectious or inflammatory colitis in the appropriate clinical setting. 2. A 6.9 cm left adnexal cyst. This was present on a prior ultrasound of 08/23/2021. Recommend continued ultrasound follow-up, as previously recommended. Dictated by: Dictated on workstation # [id number]
[2021-09-13] MEDS ORDERED: KETOROLAC 30 MG/ML VIAL IVP ONE (16:30)
[2021-09-13] MEDS ORDERED: METR-145 PO (17:26)
[2021-09-13] MEDS ORDERED: DOXY100T2 PO (17:26)
[2021-09-13] MEDS ORDERED: ONDA4TAB11 PO (17:26)
[2021-09-13] MEDS ORDERED: NAPR500T8 PO (17:26)
--- NOTE | 2021-09-13 17:45 | Diagnostic Imaging Report ---
Clinical indication: Patient with pelvic pain. Patient with left ovarian cyst. Exam: Transabdominal and transvaginal ultrasound of the pelvis. Comparison: Ultrasound of the pelvis dated 08/23/2021. Findings: The uterus has normal echogenicity and echotexture with normal shape and configuration. The uterus measures 7.4 cm x 3.3 cm x 3.9 cm. Uterus is anteverted The endometrial stripe measures 5 mm. There is a 6.1 cm x 6.2 cm x 4.3 cm cyst involving the left ovary which appears simple with no significant complexity. Previously patient had a left ovarian cyst which measured 5.1 cm x 4.3 cm x 5.7 cm. Multiple bilateral follicles are also noted. The right and left ovaries demonstrate normal configuration and echogenicity. Otherwise, both ovaries demonstrate normal color Doppler flow and spectral Doppler waveform. There is no evidence of ovarian torsion. The right and left ovaries measure 3.4 cm x 2.8 cm x 2.7 cm and 2.9 cm x 2.1 cm x 2.3 cm. There is no significant free fluid within the pelvis. Impression: 1: Again seen is a simple appearing left ovarian cyst which measures 6.2 cm in greatest dimension. Patient previously had a left ovarian cyst with similar characteristics in the left adnexal region which measured 5.7 cm in greatest dimension. Follow-up pelvic ultrasound in three months is suggested to evaluate for interval change. If this cyst persists, gynecological consultation may be helpful. 2: The remainder of this ultrasound exam is unremarkable. Dictated by: Dictated on workstation # [id number]
[2021-09-13 18:08] VITALS: BP 134/91
== END 2021-09-13 18:05 | disposition home or self-care (01) ==
LOC: EDUNIT# 14:41 → ER 14:44
DX: N73.9 Female pelvic inflammatory disease, unspecified (principal); N83.202 Unspecified ovarian cyst, left side; Z32.02 Encounter for pregnancy test, result negative
CPT/HCPCS: 36415; 74177; 76830; 76856; 80053; 81000; 84703; 85025; 85652; 86141; 87070; 87205; 87210; 87491; 87591

== ENCOUNTER 2021-10-15 18:54 | Emergency (ER) | payer MEDICAID ==
[~2021-10-15 18:54] MED LIST changes: +DOXY100T2 PO; +METR-145 PO
[2021-10-15] MEDS ORDERED: KETOROLAC 60 MG/2 ML VIAL IM ONE (19:30)
--- NOTE | 2021-10-15 19:32 | ED GU-Female ---
General Stated Complaint: PELVIC PAIN Source: patient Exam Limitations: no limitations (AYANA ZARATE) History of Present Illness Date Seen by Provider: Oct 15, 2021 Time Seen by Provider: 19:29 Initial Comments Patient is a 26-year-old female presents ED with pelvic pain. Pelvic pain is described as crampy. Started 2 days ago and has been constant. Starts in the lower pelvic and radiates across the left and right. She reports yellow vaginal discharge. Currently sexually active. Not concern for sexual transmitted affection. She states she has been treated for pelvic inflammatory disease with doxycycline and Flagyl and states she is concerned she may have had a reaction to the Flagyl in the past. She last menstrual cycle was 1 week ago. She does have some mild burning with urination without frequent urination or decreased urine output. She has a history of a left ovarian cyst. It was recommended follow-up with [facility] last visit 1 month from yesterday but has not establish care. She has a known history of ovarian cyst. She vomited once today. She denies fever, chills, chest pain, shortness of breath. She appears in no acute distress. Has been taken Tylenol without much improvement. (AYANA ZARATE) Allergies and Home Medications Allergies Coded Allergies: amoxicillin (Verified Allergy, Unknown, 09/29/18) Patient Home Medication List Home Medication List Reviewed: Yes (AYANA ZARATE) Cetirizine HCl (Cetirizine HCl) 10 Mg Tablet, 10 MG PO DAILY Prescribed by: ALIYAH ORO on 03/26/211909 Cyclobenzaprine HCl (Cyclobenzaprine HCl) 10 Mg Tablet, 10 MG PO Q8H PRN for SPASMS Prescribed by: LUANA ANDRADE on 06/21/21 0040 Doxycycline Hyclate (Doxycycline Hyclate) 100 Mg Capsule, 100 MG PO BID Prescribed by: ALEKSANDRA POST on 08/23/211818 Doxycycline Hyclate (Doxycycline Hyclate) 100 Mg Tablet, 100 MG PO BID Prescribed by: LUANA ANDRADE on 09/13/21 172 Ibuprofen (Ibuprofen) 800 Mg Tablet, 800 MG PO Q8H PRN for PAIN-MILD Prescribed by: SOBIA SIMONS on 10/15/212028 Methylprednisolone (Methylprednisolone Dose Pack) 4 Mg Tablet, 4 MG PO UD Prescribed by: ASHLEE MONTILLA on 05/30/21 171 Metronidazole (Metronidazole) 500 Mg Tablet, 500 MG PO QID Prescribed by: LUANA ANDRADE on 09/13/21 172 Naproxen (Naproxen) 500 Mg Tablet.dr, 500 MG PO BID Prescribed by: LUANA ANDRADE on 06/21/21 0040 Naproxen (Naproxen) 500 Mg Tablet.dr, 500 MG PO BID Prescribed by: LUANA ANDRADE on 09/13/21 172 Ondansetron (Ondansetron Odt) 4 Mg Tab.rapdis, 4 MG PO Q4H Prescribed by: LUANA ANDRADE on 10/11/18 0155 Ondansetron (Ondansetron Odt) 8 Mg Tab.rapdis, 8 MG PO Q6H PRN for NAUSEA/VOMITING Prescribed by: ALIYAH ORO on 03/26/21 191 Ondansetron (Ondansetron Odt) 4 Mg Tab.rapdis, 4 MG PO Q4H Prescribed by: LUANA ANDRADE on 09/13/21 172 Sulfamethoxazole/Trimethoprim (Bactrim Ds Tablet) 1 Each Tablet, 1 EACH PO BID Prescribed by: ALIYAH ORO on 11/30/182003 Sulfamethoxazole/Trimethoprim (Bactrim Ds Tablet) 1 Each Tablet, 1 EACH PO BID Prescribed by: AFRICA SOLO on 01/25/212028 Review of Systems Review of Systems Constitutional: No diaphoresis, No malaise, No weakness EENTM: No blurred vision, No double vision Respiratory: No cough, No dyspnea on exertion Cardiovascular: No chest pain, No edema Gastrointestinal: abdominal pain; No diarrhea; vomiting Genitourinary: denies burning, denies discharge, denies dysuria, denies frequency; other (vaginal discharge) Musculoskeletal: No back pain, No joint pain, No muscle pain, No muscle stiffness Skin: No change in color, No change in hair/nails (AYANA ZARATE) All Other Systemes Reviewed Negative Unless Noted: Yes (AYANA ZARATE) Past Jpvlsab-Kkjypk-Cbwmyn Hx Immunizations Up To Date Tetanus Booster (TDap): Unknown PED Vaccines UTD: Yes First/Initial COVID19 Vaccinat: 09/2020 Second COVID19 Vaccination Simon: 10/2020 Third COVID19 Vaccination Date: 09/2020 (AYANA ZARATE) Seasonal Allergies Seasonal Allergies: No (AYANA ZARATE) Past Medical History Surgery/Hospitalization HX: asthma, anxiety, RBBB, OBESITY, GERD, GUAN, CONGENITAL HEART REPAIR. 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; EGD) Cardiac, Open Heart Surgery Respiratory: Yes Asthma Cardiac: Yes (OPEN HEART SURGERY AT AGE 4 TO REPAIR HOLES IN HEART-ASD & VSD; RBBB) Congenital Heart Disease Neurological: Yes Headaches /Migraines Reproductive Disorders: Yes Female Reproductive Disorders: Menstrual Problems, Ovarian Cyst Genitourinary: Yes Bladder Infection Gastrointestinal: Yes Gastroesophageal Reflux Musculoskeletal: No Endocrine: Yes ( MORBID OBESITY) HEENT: No (GLASSES) Cancer: No Psychosocial: Yes (PANIC ATTACKS) Anxiety Integumentary: No Blood Disorders: No (AYANA ZARATE) Physical Exam Vital Signs Vital Signs - First Documented 10/15/21 19:20 Temp 36.3 Pulse 90 Resp 16 B/P (MAP) 136/96 (109) Pulse Ox 97 (ANMOL WEINER MD) Vital Signs Capillary Refill : (AYANA ZARATE) Height, Weight, BMI Height: 5'3.00" Weight: 297lbs. oz. [id number]; 52.00 BMI Method:Stated General Appearance: WD/WN, no apparent distress HEENT: PERRL/EOMI, normal ENT inspection, TMs normal, pharynx normal Neck: non-tender, full range of motion, supple, normal inspection Cardiovascular: regular rate, rhythm, no edema, no gallop, no JVD Respiratory: chest non-tender, lungs clear, normal breath sounds, no respiratory distress, no accessory muscle use Gastrointestinal: normal bowel sounds, soft, no organomegaly, other (Suprapubic, left and right lower quadrant tenderness. Normal bowel sound throughout. 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, no motor/sensory deficits, alert, normal mood/affect, oriented x 3 Skin: normal color, warm/dry (AYANA ZARATE) Progress/Results/Core Measures Suspected Sepsis SIRS Temperature: Pulse: Respiratory Rate: Laboratory Tests 10/15/21 19:33: White Blood Count 11.3H Blood Pressure / Mean: Laboratory Tests 10/15/21 19:33: Creatinine 0.77, Platelet Count 444H, Total Bilirubin 0.4 (AYANA ZARATE) Results/Orders Lab Results Laboratory Tests Test 10/15/21 19:33 10/15/21 19:35 10/15/21 19:40 Range/Units White Blood Count 11.3 H 4.3-11.0 10^3/uL Red Blood Count 5.11 3.80-5.11 10^6/uL Hemoglobin 13.1 11.5-16.0 g/dL Hematocrit 41 35-52 % Mean Corpuscular Volume 80 80-99 fL Mean Corpuscular Hemoglobin 26 25-34 pg Mean Corpuscular Hemoglobin Concent 32 32-36 g/dL Red Cell Distribution Width 14.6 H 10.0-14.5 % Platelet Count 444 H 130-400 10^3/uL Mean Platelet Volume 9.4 9.0-12.2 fL Immature Granulocyte % (Auto) 0 % Neutrophils (%) (Auto) 72 42-75 % Lymphocytes (%) (Auto) 20 12-44 % Monocytes (%) (Auto) 6 0-12 % Eosinophils (%) (Auto) 1 0-10 % Basophils (%) (Auto) 1 0-10 % Neutrophils # (Auto) 8.1 H 1.8-7.8 10^3/uL Lymphocytes # (Auto) 2.3 1.0-4.0 10^3/uL Monocytes # (Auto) 0.7 0.0-1.0 10^3/uL Eosinophils # (Auto) 0.1 0.0-0.3 10^3/uL Basophils # (Auto) 0.1 0.0-0.1 10^3/uL Immature Granulocyte # (Auto) 0.0 0.0-0.1 10^3/uL Sodium Level 140 135-145 MMOL/L Potassium Level 3.9 3.6-5.0 MMOL/L Chloride Level 105 98-107 MMOL/L Carbon Dioxide Level 21 21-32 MMOL/L Anion Gap 14 5-14 MMOL/L Blood Urea Nitrogen 7 7-18 MG/DL Creatinine 0.77 0.60-1.30 MG/DL Estimat Glomerular Filtration Rate 110 BUN/Creatinine Ratio 9 Glucose Level 122 H 70-105 MG/DL Calcium Level 9.2 8.5-10.1 MG/DL Corrected Calcium 9.2 8.5-10.1 MG/DL Total Bilirubin 0.4 0.1-1.0 MG/DL Aspartate Amino Transf (AST/SGOT) 17 5-34 U/L Alanine Aminotransferase (ALT/SGPT) 19 0-55 U/L Alkaline Phosphatase 57 40-136 U/L Total Protein 7.3 6.4-8.2 GM/DL Albumin 4.0 3.2-4.5 GM/DL Serum Test, Qualitative NEGATIVE NEGATIVE Urine Color YELLOW Urine Clarity CLEAR Urine pH 6.0 5-9 Urine Specific [place] 1.025 H 1.016-1.022 Urine Protein NEGATIVE NEGATIVE Urine Glucose (UA) NEGATIVE NEGATIVE Urine Ketones NEGATIVE NEGATIVE Urine Nitrite NEGATIVE NEGATIVE Urine Bilirubin NEGATIVE NEGATIVE Urine Urobilinogen 0.2 < = 1.0 MG/DL Urine Leukocyte Esterase NEGATIVE NEGATIVE Urine RBC (Auto) NEGATIVE NEGATIVE Urine RBC RARE /HPF Urine WBC 5-10 H /HPF Urine Squamous Epithelial Cells 5-10 /HPF Urine Crystals NONE /LPF Urine Bacteria MODERATE H /HPF Urine Casts NONE /LPF Urine Mucus MODERATE H /LPF Urine Culture Indicated YES (ANMOL WEINER MD) Medications Given in ED Current Medications Medications Dose Ordered Sig/Emmanuel Route Start Time Stop Time Status Last Admin Dose Admin Ketorolac Tromethamine 30 mg STK-MED ONCE .ROUTE 10/15/21 19:48 10/15/21 19:50 DC 10/15/21 19:56 30 MG (ANMOL WEINER MD) Vital Signs/I&O 10/15/21 10/15/21 19:20 20:37 Temp 36.3 36.3 Pulse 90 90 Resp 16 16 B/P (MAP) 136/96 (109) 136/96 Pulse Ox 97 97 (ANMOL WEINER MD) Vital Signs/I&O Capillary Refill : (AYANA ZARATE) Departure Communication (PCP) Patient not currently on her menstrual cycle. Negative for . Urinalysis concerning for infection. Patient with some urinary symptoms. Will discharge with Keflex. She has a known left ovarian cyst. It was recommended last visit on September 13 to follow-up with [facility] which she has not. Pain appears to be more generalized in the lower abdomen. No McBurney point tenderness. She does not appear in acute distress suggesting ovarian torsion. Lab work shows slightly elevated white blood count. Refused pelvic exam but was agreeable for pelvic swab. Trichomonas, bacterial vaginosis negative. Chlamydia gonorrhea pending. She was not treated prophylactically and not concern for sexual transmitted infection. This is patient's third visit over the past 3 months for similar type symptoms. Last visit on September 13 showed a left ovarian cyst 6.2 cm change from 5.7 from visit in August. Recommend outpatient [facility] follow-up for this in the continuous pelvic discomfort. No sexual intercourse until results from STD cultures. Avoid excessive vaginal cleaning. She did she does not appear in acute distress or appears septic. Was given Toradol with improvement of pain. Will discharge with anti-inflammatories. No surgical abdomen. If any worsening symptoms return back to ED for further evaluation. (AYANA ZARATE) Impression Primary Impression: Urinary tract infection Additional Impression: Pelvic pain Disposition: 01 HOME, SELF-CARE Condition: Stable Departure-Patient Inst. Decision time for Depature: 20:28 (AYANA ZARATE) Referrals: MADHU SARAVIA DAVID M PA (PCP) Primary Care Physician Patient Instructions: Urinary Tract Infection, Adult ED Add. Discharge Instructions: Recommend following up with [facility] for further evaluation for the pelvic pain. Scripts Ibuprofen (Ibuprofen) 800 Mg Tablet 800 MG PO Q8H PRN for PAIN-MILD, #16 TAB Prov: AYANA ZARATE 10/15/21 ATTENDING PHYSICIAN NOTE: I was physically present as attending physician in the emergency department during the care of this patient, but I was not directly involved in the decision making or delivery of care for this patient. (ANMOL WEINER MD) AYANA ZARATE Oct 15, 2021 19:32 ANMOL WEINER MD Oct 16, 2021 04:04
[2021-10-15 19:43] LABS: BASOPHILS # (AUTO) 0.1 10^3/uL (0.0-0.1); BASOPHILS % (AUTO) 1 % (0-10); EOSINOPHILS # (AUTO) 0.1 10^3/uL (0.0-0.3); EOSINOPHILS % (AUTO) 1 % (0-10); HEMATOCRIT 41 % (35-52); HEMOGLOBIN 13.1 g/dL (11.5-16.0); LYMPHOCYTES # (AUTO) 2.3 10^3/uL (1.0-4.0); LYMPHOCYTES % (AUTO) 20 % (12-44); MEAN CORPUSCULAR HEMOGLOBIN 26 pg (25-34); MEAN CORPUSCULAR HGB CONC 32 g/dL (32-36); MEAN CORPUSCULAR VOLUME 80 fL (80-99); MEAN PLATELET VOLUME 9.4 fL (9.0-12.2); MONOCYTES # (AUTO) 0.7 10^3/uL (0.0-1.0); MONOCYTES % (AUTO) 6 % (0-12); NEUTROPHILS # (AUTO) 8.1 10^3/uL (1.8-7.8); NEUTROPHILS % (AUTO) 72 % (42-75); PLATELET COUNT 444 10^3/uL (130-400); WHITE BLOOD COUNT 11.3 10^3/uL (4.3-11.0)
[2021-10-15 19:47] LABS: BILIRUBIN,URINE NEGATIVE (NEGATIVE); CLARITY,URINE CLEAR; COLOR,URINE YELLOW; GLUCOSE, URINE (UA) NEGATIVE (NEGATIVE); KETONES,URINE NEGATIVE (NEGATIVE); LEUKOCYTE ESTERASE ,URINE NEGATIVE (NEGATIVE); NITRITE,URINE NEGATIVE (NEGATIVE); PROTEIN,URINE NEGATIVE (NEGATIVE)
[2021-10-15] MEDS ORDERED: KETOROLAC 30 MG/ML VIAL ONE (19:48)
[2021-10-15 19:57] LABS: BILIRUBIN,TOTAL 0.4 MG/DL (0.1-1.0); CALCIUM 9.2 MG/DL (8.5-10.1); CREATININE SERUM 0.77 MG/DL (0.60-1.30); POTASSIUM 3.9 MMOL/L (3.6-5.0); TOTAL PROTEIN 7.3 GM/DL (6.4-8.2)
[2021-10-15 20:04] LABS: BACTERIA,URINE MODERATE /HPF; RBC,URINE RARE /HPF
[2021-10-15] MEDS ORDERED: IBUP-1780 PO (20:29)
[2021-10-15 20:37] VITALS: BP 136/96
== END 2021-10-15 20:37 | disposition home or self-care (01) ==
LOC: EDUNIT# 18:54 → ER 18:59
DX: N39.0 Urinary tract infection, site not specified (principal); E66.01 Morbid (severe) obesity due to excess calories; Z68.43 Body mass index [BMI] 50.0-59.9, adult; Z32.02 Encounter for pregnancy test, result negative
CPT/HCPCS: 36415; 80053; 81000; 84703; 85025; 87088; 87210; 87491; 87591

== ENCOUNTER 2021-11-03 05:27 | Emergency (ER) | payer MEDICAID ==
[~2021-11-03 05:27] MED LIST changes: +IBUP-1780 PO
[2021-11-03 05:55] LABS: BILIRUBIN,URINE NEGATIVE (NEGATIVE); CLARITY,URINE CLEAR; COLOR,URINE YELLOW; GLUCOSE, URINE (UA) NEGATIVE (NEGATIVE); KETONES,URINE NEGATIVE (NEGATIVE); LEUKOCYTE ESTERASE ,URINE NEGATIVE (NEGATIVE); NITRITE,URINE NEGATIVE (NEGATIVE); PH,URINE 6.5 (5-9); PROTEIN,URINE NEGATIVE (NEGATIVE)
[2021-11-03] MEDS ORDERED: KETOROLAC 60 MG/2 ML VIAL IM ONE (06:00)
--- NOTE | 2021-11-03 06:03 | ED GU-Female ---
General Chief Complaint: - Reproductive Stated Complaint: PELVIC PAIN Nursing Triage Note: TO ED VIA [facility] IN TO ER ROOM 5 WITH C/O CHRONIC PELVIC PAIN. HAS NOT F/U WITH OBGYN INSTRUCTED TO DO MX TIMES FROM PREVIOUS VISITS. Source: patient Exam Limitations: no limitations (EVERARDO VALVERDE MD) History of Present Illness Date Seen by Provider: Nov 03, 2021 Time Seen by Provider: 05:50 Initial Comments Patient is a 26-year-old female who presents to the emergency department today with a chief complaint of left lower quadrant abdominal pain. Patient states that she has a history of an ovarian cyst that is very large and she has been having heavy menstrual bleeding since which is unusual for her. She has felt a little nauseous and she was getting up to go to the bathroom when she tripped and fell into a "split position" and feels like she injured her left inguinal/pelvic region. She has been having a little diarrhea recently. No fevers or chills. No burning with urination, no abnormal vaginal discharge. She is sexually active with women. She states she cannot be . 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 She states that she initially lost her paperwork and now she is moving to [place] so she does not see the point in following up locally. All other review of systems reviewed and negative except as stated. Timing/Duration: just prior to arrival Severity/Quality: moderate Location: other (left lower abd/pelvis) Radiation: none Associated Symptoms: abdominal pain (EVERARDO VALVERDE MD) Allergies and Home Medications Allergies Coded Allergies: amoxicillin (Verified Allergy, Unknown, 09/29/18) Patient Home Medication List Home Medication List Reviewed: Yes (EVERARDO VALVERDE MD) Cetirizine HCl (Cetirizine HCl) 10 Mg Tablet, 10 MG PO DAILY Prescribed by: ALIYAH ORO on 03/26/211909 Cyclobenzaprine HCl (Cyclobenzaprine HCl) 10 Mg Tablet, 10 MG PO Q8H PRN for SPASMS Prescribed by: LUANA ANDRADE on 06/21/21 0040 Doxycycline Hyclate (Doxycycline Hyclate) 100 Mg Capsule, 100 MG PO BID Prescribed by: ALEKSANDRA POST on 08/23/211818 Doxycycline Hyclate (Doxycycline Hyclate) 100 Mg Tablet, 100 MG PO BID Prescribed by: LUANA ANDRADE on 09/13/211725 Ibuprofen (Ibuprofen) 800 Mg Tablet, 800 MG PO Q8H PRN for PAIN-MILD Prescribed by: SOBIA SIMONS on 10/15/212028 Methylprednisolone (Methylprednisolone Dose Pack) 4 Mg Tablet, 4 MG PO UD Prescribed by: ASHLEE MONTILLA on 05/30/211712 Metronidazole (Metronidazole) 500 Mg Tablet, 500 MG PO QID Prescribed by: LUANA ANDRADE on 09/13/21 172 Naproxen (Naproxen) 500 Mg Tablet.dr, 500 MG PO BID Prescribed by: LUANA ANDRADE on 06/21/21 0040 Naproxen (Naproxen) 500 Mg Tablet.dr, 500 MG PO BID Prescribed by: LUANA ANDRADE on 09/13/211725 Ondansetron (Ondansetron Odt) 4 Mg Tab.rapdis, 4 MG PO Q4H Prescribed by: LUANA ANDRADE on 10/11/18 015 Ondansetron (Ondansetron Odt) 8 Mg Tab.rapdis, 8 MG PO Q6H PRN for NAUSEA/VOMITING Prescribed by: ALIYAH ORO on 03/26/211909 Ondansetron (Ondansetron Odt) 4 Mg Tab.rapdis, 4 MG PO Q4H Prescribed by: LUANA ANDRADE on 09/13/211725 Sulfamethoxazole/Trimethoprim (Bactrim Ds Tablet) 1 Each Tablet, 1 EACH PO BID Prescribed by: ALIYAH ORO on 11/30/182003 Sulfamethoxazole/Trimethoprim (Bactrim Ds Tablet) 1 Each Tablet, 1 EACH PO BID Prescribed by: AFRICA SOLO on 01/25/212028 Review of Systems Review of Systems Constitutional: see HPI EENTM: no symptoms reported Respiratory: no symptoms reported Cardiovascular: no symptoms reported Gastrointestinal: diarrhea, nausea Genitourinary: no symptoms reported : No Musculoskeletal: no symptoms reported Skin: no symptoms reported (EVERARDO VALVERDE MD) All Other Systemes Reviewed Negative Unless Noted: Yes (EVERARDO VALVERDE MD) Past Ljtzwms-Ownthi-Uooyqe Hx Patient Social History Tobacco Use?: Yes Smoking Status: Current Everyday Smoker E-Cig or Vaping type used: Nicotine Substance use?: No Alcohol Use?: No (EVERARDO VALVERDE MD) Immunizations Up To Date Tetanus Booster (TDap): Unknown PED Vaccines UTD: Yes First/Initial COVID19 Vaccinat: 09/2020 Second COVID19 Vaccination Simon: 10/2020 Third COVID19 Vaccination Date: 09/2020 (EVERARDO VALVERDE MD) Seasonal Allergies Seasonal Allergies: No (EVERARDO VALVERDE MD) Past Medical History Surgery/Hospitalization HX: asthma, anxiety, RBBB, OBESITY, GERD, GUAN, CONGENITAL HEART REPAIR, OVARIAN CYST 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; EGD) Cardiac, Open Heart Surgery Respiratory: Yes Asthma Cardiac: Yes (OPEN HEART SURGERY AT AGE 4 TO REPAIR HOLES IN HEART-ASD & VSD; RBBB) Congenital Heart Disease Neurological: Yes Headaches /Migraines Last Menstrual Period: Oct 29, 2021 Reproductive Disorders: Yes Female Reproductive Disorders: Menstrual Problems, Ovarian Cyst Genitourinary: Yes Bladder Infection Gastrointestinal: Yes Gastroesophageal Reflux Musculoskeletal: No Endocrine: Yes ( MORBID OBESITY) HEENT: No (GLASSES) Cancer: No Psychosocial: Yes (PANIC ATTACKS) Anxiety Integumentary: No Blood Disorders: No (EVERARDO VALVERDE MD) Physical Exam Vital Signs Vital Signs - First Documented 11/03/21 05:30 Temp 36.7 Pulse 84 Resp 16 B/P (MAP) 136/91 (106) (ANMOL WEINER MD) Vital Signs Capillary Refill : Less Than 3 Seconds (EVERARDO VALVERDE MD) Height, Weight, BMI Height: 5'3.00" Weight: 297lbs. oz. 134.483139gm; 52.00 BMI Method:Stated General Appearance: WD/WN, no apparent distress HEENT: PERRL/EOMI Cardiovascular: regular rate, rhythm Respiratory: lungs clear, normal breath sounds, no respiratory distress, no accessory muscle use Gastrointestinal: soft, other (no significant tenderness to palpation of left lower abdomen; positive bowel sounds; no rebound or guarding) Extremities: normal range of motion, non-tender, normal inspection Neurologic/Psychiatric: alert, normal mood/affect, oriented x 3 Skin: normal color, warm/dry (EVERARDO VALVERDE MD) Progress/Results/Core Measures Suspected Sepsis SIRS Temperature: Pulse: 84 Respiratory Rate: 16 Blood Pressure 136 /91 Mean: 106 (EVERARDO VALVERDE MD) Results/Orders Lab Results Laboratory Tests Test 11/03/21 05:37 Range/Units Urine Color YELLOW Urine Clarity CLEAR Urine pH 6.5 5-9 Urine Specific [place] 1.015 L 1.016-1.022 Urine Protein NEGATIVE NEGATIVE Urine Glucose (UA) NEGATIVE NEGATIVE Urine Ketones NEGATIVE NEGATIVE Urine Nitrite NEGATIVE NEGATIVE Urine Bilirubin NEGATIVE NEGATIVE Urine Urobilinogen 0.2 < = 1.0 MG/DL Urine Leukocyte Esterase NEGATIVE NEGATIVE Urine RBC (Auto) 2+ H NEGATIVE Urine RBC 5-10 H /HPF Urine WBC RARE /HPF Urine Squamous Epithelial Cells 2-5 /HPF Urine Crystals PRESENT H /LPF Urine Amorphous Sediment FEW VON URATES H /LPF Urine Bacteria NEGATIVE /HPF Urine Casts NONE /LPF Urine Mucus NEGATIVE /LPF Urine Culture Indicated NO (ANMOL WEINER MD) Medications Given in ED Current Medications Medications Dose Ordered Sig/Emmanuel Route Start Time Stop Time Status Last Admin Dose Admin Ketorolac Tromethamine 60 mg ONCE ONCE IM 11/03/21 06:00 11/03/21 06:01 DC 11/03/21 06:15 60 MG (ANMOL WEINER MD) Vital Signs/I&O 11/03/21 05:30 Temp 36.7 Pulse 84 Resp 16 B/P (MAP) 136/91 (106) (ANMOL WEINER MD) Vital Signs/I&O Capillary Refill : Less Than 3 Seconds (EVERARDO VALVERDE MD) Blood Pressure Mean: 106 Progress Note : Time: 06:28 Progress Note Care of this patient was assumed from Dr. Valverde at shift change. Verbal report her impression was that this pain was from a mechanical strain when the patient did the "splits". Exam was unremarkable. Patient reports pain is significantly improved at this time. Urinalysis was pending at the time of transfer of care. UA results reviewed prior to discharge. (ANMOL WEINER MD) Departure Impression Primary Impression: Pelvic pain Additional Impression: Fall on same level Qualified Codes: W18.30XA - Fall on same level, unspecified, initial encounter Disposition: HOME, SELF-CARE Condition: Stable Departure-Patient Inst. Decision time for Depature: 06:30 (ANMOL WEINER MD) Referrals: JUICE EL (PCP/Family) Primary Care Physician Patient Instructions: Pelvic Pain (DC) Add. Discharge Instructions: You may take Tylenol (acetaminophen) up to 1000 mg every 6 hours as needed for pain. After noon you may also take ibuprofen up to 600 mg every 6 hours as needed. Icing in 20-minute intervals may be used for sore muscles. Follow-up with your primary care provider if you do not have rapid improvement of this pain. Try to avoid activities that worsen the pain. Return to the ER if you have worsening symptoms despite following these instructions. All discharge instructions reviewed with patient and/or family. Voiced understanding. EVERARDO VALVERDE MD Nov 03, 2021 06:02 ANMOL WEINER MD Nov 03, 2021 06:33
[2021-11-03 06:17] LABS: AMORPHOUS SEDIMENT,UR FEW AMOR URATES /LPF; BACTERIA,URINE NEGATIVE /HPF; WBC,URINE RARE /HPF
[2021-11-03 06:35] VITALS: BP 132/89
== END 2021-11-03 06:38 | disposition home or self-care (01) ==
LOC: EDUNIT# 05:27 → ER 05:29
DX: R10.2 Pelvic and perineal pain (principal); F17.200 Nicotine dependence, unspecified, uncomplicated; W01.0XXA Fall on same level from slipping, tripping and stumbling without subsequent striking against object, initial encounter
CPT/HCPCS: 81000; 84703; 99284